=== PATIENT | male | born 1940 | race Caucasian/White ===

== ENCOUNTER → 2016-07-24 | Outpatient (REF) | payer MEDICARE ==
[~2016-07-24] MED LIST: /ONDA4TA OR; /PANT40TA OR; /PROM25SU RE; /WARF5TA OR; ACET65TA OR; CIPR500T4 OR; DIGO0.126 OR; DILA2TAB OR; FISH1000 OR; FLAG500T OR; GLIM1TAB OR; GLUC1000 OR; GLUC850T OR; INSULANT SC; INSULIN LANTUS SQ; KETO-28 OR; LIPI10TA OR; LISI5TAB OR; LOPR50TA OR; MULTIVIT OR; PERC5TAB8 OR; PERC7.5T8 OR; VIT D 2000 OR; VITA-113 OR; VITA100T OR; VITA500C OR; WARF1TAB OR; caltrate; in; multaq OR
[2016-07-24 14:06] LABS: IMMUNOGLOBULIN M 41.7 MG/DL (40-230)
== END ==
LOC: M LAB REF 13:01
PROVIDERS: ATTEND Internal Medicine Medical Oncology
DX: C85.90 Non-Hodgkin lymphoma, unspecified, unspecified site (principal)

== ENCOUNTER → 2016-07-25 | Outpatient (CLI) | payer MEDICARE ==
[~2016-07-25] MED LIST changes: +GASTROGRAFIN SOLUTION 30ML (Q9963) As Ordered ONE; +ISOVUE-370 76% 100ML VIAL (Q9967) As Ordered ONE
--- NOTE | 2016-07-25 17:19 | REP ---
CT CHEST WITH CONTRAST: REASON: History of non-Hodgkin's lymphoma. COMPARISON: Chest CT 06/22/2015 with an older exam of 09/09/2012. CONTRAST UTILIZED: 100 mL Isovue-370. There has been no significant increase in size in the right hilar lymph nodes. Maximally measuring 1.2 cm status quo. There is no left hilar adenopathy. Small subcarinal lymph nodes are noted status quo. There is no alaina mediastinal adenopathy. There are no pleural or pericardial effusions. The imaged osseous structures are stable and intact. Evaluation of the lung sultana show chronic fibrotic changes status quo. There is varicoid bronchiectasis at the lung bases and cylindrical bronchiectasis involving the upper lung regions. This too is essentially unchanged. No new abnormal nodules, mass, or opacities have developed although could be obscured by the marked chronic fibrotic changes. IMPRESSION: Essentially stable CT examination of the chest with findings as described above. Signed by Moise Ac DO 07/30/2016 02:51 P
--- NOTE | 2016-07-25 17:25 | REP ---
CT ABDOMEN AND PELVIS: REASON: History of non-Hodgkin's lymphoma. COMPARISON: Multiple, latest 01/11/2016. CONTRAST UTILIZED: 100 mL Isovue-370. The precontrast enhanced portion of the examination shows hepatic and splenic densities to remain with normal limits. Surgical clips are in the gallbladder fossa from previous cholecystectomy status quo. There are no nephroliths. The contrast enhanced portion of the examination shows the liver, spleen, pancreas, adrenal glands, and kidneys to be unchanged and within normal limits. Note is again made of an exophytic cyst arising from the superior pole of the right kidney status quo. There is no change in appearance of the abdominal aorta. The paraaortic regions are stable showing no evidence of adenopathy. The bowel loops and mesenteries are essentially unchanged remaining in normal limits. No intraabdominal mass or adenopathy has developed. CT PELVIS: There is no pelvic mass or adenopathy. There is no free fluid or free air. The bowel loops and their mesenteries are again seen to be within normal limits. Bone window technique throughout the exam shows chronic osseous changes status quo. IMPRESSION: Essentially stable CT examination of the abdomen and pelvis with findings as described above. There is no evidence of recurrent disease. Signed by Moise Ac DO 07/30/2016 02:51 P
== END ==
LOC: M RAD 14:10
PROVIDERS: ATTEND Internal Medicine Medical Oncology
DX: C85.90 Non-Hodgkin lymphoma, unspecified, unspecified site (principal)
CPT/HCPCS: 71260; 74178; Q9963; Q9967

== ENCOUNTER 2019-02-13 11:36 | Inpatient (IN) | payer MEDICARE ==
[~2019-02-13] VITALS: Ht 172.7 cm; Wt 87.2 kg
[~2019-02-13 11:36] MED LIST changes: -/ONDA4TA OR; -/PANT40TA OR; -/WARF5TA OR; +APAP325T4 PO; +ASCO500T PO; +COUM1TAB17 OR; +FENO160T10 PO; +FENO48TA13 PO; -GASTROGRAFIN SOLUTION 30ML (Q9963) As Ordered ONE; +GLIM4TAB3 PO; +INSULADS SC; -ISOVUE-370 76% 100ML VIAL (Q9967) As Ordered ONE; +LOPR1TAB6 PO; +METF500S PO; +ONDA-1 OR; +PROT1TAB2 OR; +VITA100066 PO; +VITA500C10 PO; +WARF-23 PO
[2019-02-13] MEDS ORDERED: NS 1,000 ML IV SCH (11:43)
[2019-02-13] MEDS ORDERED: VITA500C24 PO (11:54)
[2019-02-13] MEDS ORDERED: WARF-18 PO (11:54)
[2019-02-13] MEDS ORDERED: CENTTAB16 PO (11:54)
[2019-02-13] MEDS ORDERED: ROSU10TA6 PO (11:54)
[2019-02-13 12:31] LABS: BASO % 0.1 % (0.0-1.0); EOS % 0.3 % (0.0-3.0); HEMATOCRIT 36.8 % (42.0-52.0); HEMOGLOBIN 12.3 g/dl (13.5-17.5); LYMPH # 0.7 10^3/uL (1.5-5.0); LYMPH % 4.6 % (24.0-44.0); MEAN CORPUSCULAR HEMOGLOBIN 31.2 pg (27.0-33.0); MEAN CORPUSCULAR HGB CONC 33.4 g/dl (32.0-36.5); MEAN CORPUSCULAR VOLUME 93.4 fl (80.0-96.0); MONO % 13.6 % (0.0-5.0); NEUTROPHILS # 12.2 10^3/uL (1.5-8.5); NEUTROPHILS % 80.4 % (36.0-66.0); PLATELET COUNT, AUTOMATED 238 10^3/uL (150-450); RED BLOOD COUNT 3.94 10^6/uL (4.30-6.10); WHITE BLOOD COUNT 15.2 10^3/uL (4.0-10.0)
[2019-02-13 12:53] LABS: MONO # 2.1 10^3/uL (0.0-0.8)
[2019-02-13 12:56] LABS: INR 2.07; PROTHROMBIN TIME 23.1 SECONDS (11.8-14.0)
[2019-02-13 12:57] LABS: PARTIAL THROMBOPLASTIN TIME 39.1 SECONDS (25.0-38.4)
[2019-02-13 13:12] LABS: ALBUMIN 3.2 GM/DL (3.2-5.2); BILIRUBIN,DIRECT 0.6 MG/DL (0.0-0.2); BILIRUBIN,TOTAL 1.3 MG/DL (0.2-1.0); CK-MB VALUE MASS 7.4 NG/ML (<3.6); CREATININE FOR GFR 2.14 MG/DL (0.70-1.30); GLOMERULAR FILTRATION RATE 32.1 (>42); MB/CK RELATIVE INDEX 0.58 (< OR =4); POTASSIUM SERUM 4.4 MEQ/L (3.5-5.1); THYROID STIMULATING HORMONE 1.74 uIU/ML (0.358-3.740); TOTAL PROTEIN 6.8 GM/DL (6.4-8.2); TROPONIN I 0.63 NG/ML (< 0.10)
--- NOTE | 2019-02-13 13:28 | REP ---
PORTABLE CHEST: AP portable view of the chest is performed. Heart is upper limits of normal in size. There is underlying interstitial fibrosis with poor ventilation and basilar atelectatic change. I cannot completely exclude mild bibasilar interstitial infiltrate. There is calcification of the thoracic aorta. Multiple sternal wires and mediastinal clips are present. Electronically Signed by Jeff Mora MD 02/14/2019 11:11 A
[2019-02-13] MEDS ORDERED: METF-839 PO (14:16)
[2019-02-13] MEDS ORDERED: ASCO500T PO (14:16)
[2019-02-13] MEDS ORDERED: ROSU20TA5 PO (14:16)
[2019-02-13] MEDS ORDERED: cefTRIAXone SOD 2 GM in D5W MINI-BAG PLUS 50 ML IV ONE (16:00)
[2019-02-13] MEDS ORDERED: NS 1,000 ML IV ONE (16:00)
[2019-02-13 16:12] LABS: CK-MB VALUE MASS 6.4 NG/ML (<3.6); MB/CK RELATIVE INDEX 0.51 (< OR =4); TROPONIN I 0.61 NG/ML (< 0.10)
[2019-02-13] MEDS ORDERED: AZITHROMYCIN INJ 500 MG, VIAL MATE ADAPTER 1 EACH in D5W 250 ML IV ONE (17:00)
--- NOTE | 2019-02-13 17:26 | HPEPDOC ---
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 corey, on anticoagulation with Coumadin, comes to the ER because he was sent from the doctor's office because of abnormal labs. The patient was found to have leukocytosis and A. fib with RVR. The patient states that over the last 34 days he has been feeling other than the weather and has been having cough which has been progressive and now he is having sputum which is greenish in color. He states that he has having night sweats but denies any fever. Patient denies any chest pain, any shortness of breath or any declining physical status. The patient states that he feels more tired than before. The patient also states that he has no diarrhea. The patient denies any travel outside the country, but he does state that he has been going for fishing and was recently out couple of days back. The patient denies any sick contacts, any flulike symptoms. The patient denies any abdominal pain, any diarrhea, any nausea or any vomiting. He denies any rash PAST MEDICAL HISTORY: A. fib, CAD status post CABG, history of bladder cancer, non-Hodgkin's lymphoma, skin cancer, PAST SURGICAL HISTORY: CABG FAMILY HISTORY: Noncontributory. SOCIAL HISTORY: Nonsmoker. No alcohol abuse. No drug abuse FAMILY HISTORY: History of hypertension HOME MEDICATIONS: Updated ALLERGIES: No drug allergies REVIEW OF SYSTEMS: Pertinent positive findings as per HPI PHYSICAL EXAMINATION: GENERAL alert, oriented to time, place and person. Looks of stated age. HEENT: Normocephalic, atraumatic. NECK: No jugular venous distention. No cervical lymphadenopathy. Trachea is midline. Neck is supple. CHEST: Mild bibasilar crackles, more like Velcro rales with very mild diffuse Rales heard. CARDIOVASCULAR: S1, S2, irregular with tachycardia . No murmurs, clicks, or rubs can be appreciated. ABDOMEN: Soft. It is actually relatively flat. There is no guarding, no peritoneal signs. Minimal tenderness. Positive bowel sounds. EXTREMITIES: Mild pedal edema LABORATORY DATA: As below EKG. Current EKG shows A. fib with RVR with a heart rate of 112 ASSESSMENT AND PLAN: 1. Sepsis secondary to Bilateral lower lobe pneumonia along with possible interstitial ground glass appearing infiltrates. Given the patient positives or criteria for lactic acidosis, tachycardia, the source of infection. Patient will be treated as sepsis secondary to pneumonia. The patient will be started on Rocephin and azithromycin to cover atypical interstitial pneumonia. Sputum culture and Procal will be sent. Blood culture also will be sent. He'll be continued on supplemental oxygen to maintain saturation about 92. Dual nebs when necessary and schedule will be ordered. CT scan of the chest was alre mya done which shows interstitial pneumonia with possible fibrotic changes which could be a chronic groundglass appearance, but we are awaiting the official report 2-D echo will also be done as he has bilateral atrial crackles to rule out any component of CHF. 2. A. fib RVR. Likely secondary to pneumonia and lactic acidosis. Patient does look slightly dehydrated and for that reason, he'll be continued on 75 mL of normal saline. Repeat lactic acid will be done. Cultures ordered as above. Metoprolol 50 twice a day has been restarted as the patient did not take his morning dose. We will continue the IV fluids as well as medication and sees the heart. It gets controlled. If not, then the patient be put on Cardizem drip. Patient will be continued on the home dose of Coumadin as the patient has high chads score of 4. Target INR 2-3 Continue telemetry monitoring. Follow-up with 2-D echo 3. Lactic acidosis. Likely secondary to sepsis. We'll continue to monitor and give IV fluids. 4. CAD status post CABG. We will continue the patient's home medications will be a blockers and aspirin. 5. Hyper ammoniemia: Etiology unknown. The patient does have mildly elevated bilirubin of 1.3. Will get direct and indirect bilirubin along with liver sonogram to rule out any fatty liver versus Mccall. We'll continue to monitor the liver function tests. Will give 1 dose of 15 of lactulose. Monitor ammonia levels in the morning. 6. Elevated troponins. Likely secondary to A. fib RVR and demand ischemia. With a flat trend. Will order one more troponin. 2-D echo will also be ordered and the patient will be kept on telemetry. 7. History of non-Hodgkin's lymphoma. Continue outpatient follow-up with on cology. 8. History of skin cancers. Outpatient follow-up 9. History of bladder cancer. Outpatient follow-up DVT prophylaxis full dose Coumadin Expected length of stay greater than 2 per night. Vital Signs Vital Signs Date Time Temp Pulse Resp B/P (MAP) Pulse Ox O2 Delivery O2 Flow Rate FiO2 02/13/19 12:32 Room Air 02/13/19 11:42 97.9 116 19 131/84 95 Laboratory Data Labs 24H Laboratory Tests 2 02/13/19 12:15: Prothrombin Time 23.1H, Prothromb Time International Ratio 2.07, Activated Partial Thromboplast Time 39.1H 02/13/19 12:16: Immature Granulocyte % (Auto) 1.0, Neutrophils (%) (Auto) 80.4H, Lymphocytes (%) (Auto) 4.6L, Monocytes (%) (Auto) 13.6H, Eosinophils (%) (Auto) 0.3, Basophils (%) (Auto) 0.1, Neutrophils # (Auto) 12.2H, Lymphocytes # (Auto) 0.7L, Monocytes # (Auto) 2.1H, Eosinophils # (Auto) 0.0, Basophils # (Auto) 0.0, Nucleated Red Blood Cells % (auto) 0.0, Anion Gap 13, Glomerular Filtration Rate 32.1L, Lactic Acid Level 3.3*H, Calcium Level 9.0, Total Bilirubin 1.3H, Direct Bilirubin 0.6H, Aspartate Amino Transf (AST/SGOT) 54H, Alanine Aminotransferase (ALT/SGPT) 34, Alkaline Phosphatase 70, Ammonia 100H, Lactate Dehydrogenase 329H, Total Creatine Kinase 1286H, Creatine Kinase MB 7.4H, Creatine Kinase MB Relative Index 0.58, Troponin I 0.63H, FH-Jsd-X-Type Natriuretic Peptide 2459H, Total Protein 6.8, Albumin 3.2, Albumin/Globulin Ratio 0.89L, Thyroid Stimulating Hormone (TSH) 1.740 02/13/19 12:27: Bedside Glucose (Misc Panel) 171H 02/13/19 15:08: Total Creatine Kinase 1263H, Creatine Kinase MB 6.4H, Creatine Kinase MB Relative Index 0.51, Troponin I 0.61H 02/13/19 16:34: CBC/BMP Laboratory Tests 02/13/19 12:16 Microbiology Microbiology 02/13/19 Gram Stain - Final, Resulted 02/13/19 Sputum Culture, Resulted Pending 02/13/19 Respiratory Virus Panel (PCR) (SUSAN) - Final, Complete 02/13/19 Blood Culture, Received Pending 02/13/19 Blood Culture, Received Pending Home Medications Scheduled Ascorbic Acid (Ascorbic Acid) 500 Mg Tablet, 500 MG PO DAILY Fenofibrate Nanocrystallized (Fenofibrate) 48 Mg Tablet, 48 MG PO QHS Glimepiride (Glimepiride) 4 Mg Tab, 4 MG PO BID Insulin Glargine (Lantus) 100 Unit/Ml Inj, 1 DOSE SC QHS CHECKS BS PRIOR TO DOSE, ADJUSTS DOSE ACCORDINGLY Metformin HCl (Metformin HCl) 500 Mg Tablet, 500 MG PO BID Metoprolol Tartrate (Lopressor) 50 Mg Tab, 50 MG PO BID Multivit-Min/FA/Lycopen/Lutein (Centrum Silver Ultra Men's Tab) 1 Each Tablet, 1 TAB PO DAILY Rosuvastatin Calcium (Rosuvastatin Calcium) 20 Mg Tablet, 20 MG PO QHS Warfarin Sodium (Warfarin Sodium) 5 Mg Tab, 5 MG PO 2XW TUES/THURS Warfarin Sodium (Warfarin Sodium) 2.5 Mg Tablet, 2.5 MG PO 5XW SUN/MON/WED/FRI/SAT Scheduled PRN Acetaminophen (Acetaminophen) 325 Mg Tab, 650 MG PO Q4H PRN for PAIN Allergies Coded Allergies: No Known Allergies (Unverified , 07/24/18) A-FIB/CHADSVASC A-FIB History Current/History of A-Fib/PAF?: Yes Current PO Anticoag Therapy: Yes BECKY SALDIVAR MD Feb 13, 2019 17:11
--- NOTE | 2019-02-13 17:29 | REP ---
CT CHEST WITHOUT IV CONTRAST: CT chest performed without IV contrast. Sagittal and coronal reconstruction images are performed. COMPARISON: 07/25/2016 There is a moderate degree of bronchiectasis bilaterally, particularly in the lower lobes. There is diffuse interstitial fibrosis again seen, again more so in the bilateral lower lobes. However, there do appear to be superimposed mild scattered interstitial and alveolar infiltrates in the lower lungs bilaterally. No pleural or pericardial effusion is seen. Heart is upper limits of normal in size. Mild subcarinal adenopathy is likely reactive in nature 1.5 cm in short axis. There are a few subcentimeter mediastinal lymph nodes in the pericarinal region. There are atherosclerotic calcifications of the thoracic aorta without aneurysm. There is a cyst in the upper pole of the right kidney measuring 2 cm in diameter. The patient has had a prior cholecystectomy. There are degenerative changes of the spine. IMPRESSION: Chronic fibrosis and bronchiectasis. Superimposed mild scattered interstitial and alveolar infiltrate in both lower lung zones. Electronically Signed by Jeff Mora MD 02/14/2019 11:20 A
[2019-02-13] MEDS ORDERED: MOM 30ML SUSPENSION UDC PO PRN (17:30)
[2019-02-13] MEDS ORDERED: MAALOX 30 ML SUSP *UDC PO PRN (17:30)
[2019-02-13] MEDS ORDERED: ACETAMINOPHEN TAB 650MG DOSE (2X325MG) PO PRN (17:30)
[2019-02-13] MEDS ORDERED: GLUCAGON FOR INJ 1 MG VIAL (J1610) SC PRN (17:45)
[2019-02-13] MEDS ORDERED: GLUCOSE 4 GM CHEW TABLET PO PRN (17:45)
[2019-02-13] MEDS ORDERED: LACTULOSE 20 GM/30 ML SYRUP UD PO ONE (17:45)
[2019-02-13] MEDS ORDERED: DEXTROSE 50% 50 ML SYRINGE IV PRN (17:45)
[2019-02-13] MEDS: NS 1,000 ML IV SCH (17:46)
[2019-02-13] MEDS ORDERED: METOPROLOL 5 MG/5 ML VIAL As Ordered ONE (19:30)
[2019-02-13] MEDS: diltiaZEM 125 MG in NS 100 ML IV SCH (19:30)
[2019-02-13] MEDS: METOPROLOL 5 MG/5 ML VIAL IV SCH ×3 (19:32→20:25)
--- NOTE | 2019-02-13 19:52 | REPVR ---
PROCEDURE INFORMATION: Exam: US Abdomen Limited, Right Upper Quadrant Exam date and time: 02/13/2019 7:02 PM Clinical history: 78 years old, male; Abnormal findings; Abnormal lab test; Elevated liver enzymes; Prior surgery; Surgery date: 6+ months; Additional info: Elevated ness TECHNIQUE: Imaging protocol: Real-time ultrasound of the abdomen with image documentation. Examination was focused on the right upper quadrant. COMPARISON: No relevant prior studies available. FINDINGS: Liver: Coarsened liver echotexture with normal size measuring 14 cm. Gallbladder: Normal gallbladder. Common bile duct: Normal. No stones. No dilation. Pancreas: Pancreas obscured by bowel gas. Right kidney: Unremarkable 12 cm right kidney. IMPRESSION: 1. Coarsened liver echotexture with normal size measuring 14 cm. 2. Normal gallbladder. Electronically signed by: Sohan Pedro On 02/13/2019 19:52:00 PM
[2019-02-13] MEDS: BUDESONIDE 0.5 MG/2 ML INHALATION SUSPENSION INH SCH (20:00)
[2019-02-13] MEDS ORDERED: METOPROLOL TART 50 MG TAB PO SCH (21:00)
[2019-02-13] MEDS: DOCUSATE SODIUM 100 MG CAP PO SCH (21:00)
--- NOTE | 2019-02-13 21:29 | ECGEPIP ---
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
--- NOTE | 2019-02-13 21:32 | ECGEPIP ---
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
[2019-02-13] MEDS: ROSUVASTATIN 10 MG TAB (CRESTOR) PO SCH (21:45)
[2019-02-13 22:45] VITALS: BP 140/55
[2019-02-13 22:52] LABS: INR 1.99; PROTHROMBIN TIME 22.4 SECONDS (11.8-14.0)
[2019-02-13 23:00] VITALS: BP 148/56
[2019-02-13 23:07] LABS: HEMOGLOBIN A1c 7.5 %
[2019-02-13 23:16] LABS: BILIRUBIN,DIRECT 0.4 MG/DL (0.0-0.2); THYROID STIMULATING HORMONE 1.15 uIU/ML (0.358-3.740); TROPONIN I 0.44 NG/ML (< 0.10)
[2019-02-13 23:32] VITALS: BP 133/100
[2019-02-13] MEDS ORDERED: IPRATROPIUM 0.5MG/ALBUTEROL 2.5MG INH SOL UD 3ML (DUONEB)(J7620) NEB PRN (23:45)
[2019-02-14] VITALS (18 sets, daily range): BP systolic 106–173; BP diastolic 58–90
--- NOTE | 2019-02-14 00:30 | CR ---
DATE: 02/13/2019 REASON FOR CONSULTATION: Abnormal chest CT. HISTORY OF PRESENT ILLNESS: Sohan is a 78-year-old male who is unable to provide any history so the majority of his medical history is obtained by his daughter. Apparently at home, he had developed a cough over the past few days productive of dark green mucus. He had been under the care of oncology and went to a medical oncology appointment where they noticed leukocytosis, and therefore, he was sent to the emergency room. According to his daughter, he had some altered mentation over the past few days. She states he had trouble driving. She had not noticed any fevers or chills, but did notice a developing cough. He had not complained of chest pain. She did not notice any worsening edema, although he does carry a history of coronary artery disease with systolic dysfunction. On arrival to the emergency room, he was tachycardiac, found to be in atrial fibrillation with rapid ventricular response (RVR) with a normal oxygen saturation on room air at 95%. He was started on antibiotics. Although his RVR became more difficult to treat, eventually went into a tachyarrhythmia above 200. I do not have an EKG from that time, but apparently he was administered IV beta fer with good response. His daughter noting that I was in the building requested my presence at his bedside. I was asked by the hospitalist to attend this patient. On my arrival to the room, the patient appeared comfortable, was coughing. He states overall he feels well and he has no complaints. He could not recall what brought him to the hospital. Two days ago, the patient was seen by his primary care physician and placed on azithromycin for his cough. PAST MEDICAL HISTORY: 1. Atrial fibrillation. 2. History of coronary artery disease, status post coronary artery bypass graft (CABG), reported systolic dysfunction. I do not have an echocardiogram for my review. 3. History of bladder carcinoma. 4. History of non-Hodgkin's lymphoma, diagnosed 2004. Completed his second course of R-CHOP 2009 because of mesenteric relapse with a maintenance rituximab for 2 years and then considered to be in remission. 5 History of skin cancer, squamous cell carcinoma of the scalp. CURRENT MEDICATIONS: Include: - warfarin - ceftriaxone - vitamin C - multivitamin - azithromycin - Tricor - Lopressor - Crestor - Tylenol - Milk of Magnesia - Colace - Mylanta - diltiazem ALLERGIES: No known drug allergies. SOCIAL HISTORY: The patient has a very remote limited history of smoking, has not smoked within the past 30 years. There is no alcohol abuse. No drug use. He lives with his . His daughter is an intensive care unit (ICU) nurse. FAMILY HISTORY: No family history of idiopathic pulmonary fibrosis or interstitial lung disease. There is a family history of hypertension. No other significant family history that they are aware of. REVIEW OF SYSTEMS: As noted above, the patient denies almost all symptoms. May be unreliable due to his current mental state; however, questions answered as follows: General: The patient denies fever, chills, weight loss. The patient has had no night sweats. HEENT: The patient denies change in vision. No epistaxis. No difficulty swallowing. He denies any difficulty with hearing. Cardiovascular: Denies orthopnea. No lower extremity edema. No symptoms of claudication. Pulmonary: No symptoms of thromboembolic disease. No pleuritic chest discomfort. No history of tuberculosis, tuberculosis contacts. He has no hemoptysis. Positive cough as mentioned in HPI. Denies dyspnea, although the patient's daughter states she has seen him dyspneic. Gastrointestinal (GI): No nausea, vomiting, diarrhea, constipation or blood in stool. Genitourinary (): No burning or pain with urination. No nocturia or hematuria. Neurologic: No unilateral weakness, tremor or history of seizures. No recent head trauma. No history of stroke. Endocrine. No history of polyuria, polydipsia. No history of thyroid disease. No hot or cold intolerance. Psychiatric: No depression/suicidal ideation. No anxiety. Patient very jovial. Allergy/Immunology: No known severe allergic reactions. No seasonal allergies. The patient did have a remote history of a difficult to treat urinary Pseudomonal infection. This was previously treated by Dr. Ny. No known immunodeficiency. Sleep: Patient denies excessive daytime somnolence, has not been worked up for sleep apnea. No morning headaches. PHYSICAL EXAMINATION: Temperature is 99.7, pulse is 118, respiratory rate is 18, blood pressure is 109/58 with a mean arterial pressure (MAP) of 75, oxygen saturation is 92% on room air. General: Awake, alert, confused but understands he is in the hospital. Pleasant, jovial, nonagitated. HEENT: Sclerae clear and anicteric. Pupils equal and react to light. Mucous membranes are moist without lesions. Tongue is midline. He does have a scar over the posterior scalp that is well healed with some scabs, without surrounding erythema or exudate. Neck is supple. No tracheal deviation or mass. Lymph: No cervical, supraclavicular, or axillary adenopathy. Cardiac: Tachycardiac, S1, S2. Point of maximum impulse (PMI) is difficult to palpate due to body habitus. There is no systemic edema. Negative Homans sign. Pulmonary: Diffuse rhonchi without rales or wheeze. There is no prolongation in the expiratory phase. There is no dullness to percussion. Abdomen: Obese, soft, nontender, nondistended. No hepatosplenomegaly. No masses or hernia. Liver does appear to be slightly enlarged based on percussion, just over 12 cm in the midclavicular line. Negative Homans' sign. Extremities: No cyanosis, clubbing or edema. No calf pain. Musculoskeletal: Appears to have normal muscle tone for stated age. No evidence of joint effusion, joint fractures. Skin: No rash, jaundice, bruising. Neurologic: No unilateral weakness, tremor or asterixis. Laboratory evaluation shows a hyponatremia with a sodium of 132, potassium 4.4, chloride 97, bicarbonate of 22, BUN of 39, anion gap is elevated at 13 with a creatinine of 2.14, fasting glucose of 159. Lactate initially 2.3, then down to 2.1. Total bilirubin slightly elevated at 1.3, direct bilirubin of 0.6, AST is 54, ammonia is 100, CK is 1286 and repeated at 1263. Troponin at 0.63, 0.61. BNP is elevated at 2459. Albumin is 3.2 with a TSH of 1.7. INR is 1.99. White blood cell count is elevated at 15.2, hemoglobin of 12.3, hematocrit of 36.8, platelet count of 238 with 80% neutrophilia. Chest CT was performed at 1344 hours. This was performed contrast. There is significant bronchiectasis in both lung sultana, more predominant at the bases. There is evidence of pleural parenchymal scarring with areas of honeycombing suggesting mild pulmonary fibrosis. There is some infiltrate at the end of a bronchiectatic airway in the left upper lobe that could be the start of infection versus inflammatory fibrosis. There is significant cardiomegaly, including increased right-sided chamber size. IMPRESSION Bronchiectasis with probable underlying idiopathic pulmonary fibrosis. The patient does not have a history of having rheumatologic disease that I am aware of. He likely has pulmonary hypertension given the appearance of the heart on exam. He has known coronary artery disease. At this point in time, would recommend focusing on mucociliary clearance, adding nebulized therapy, Acapella therapy, positive expiratory pressure (PEP) therapy to his regimen. Would obtain sputum culture. At this point in time, I am stopping his azithromycin as this can provoke arrhythmias, and there can be an increased risk of cardiovascular with the use of azithromycin. Will monitor sputum cultures. I believe bronchiectasis exacerbation is the reason for his current clinical status. Will require continued followup. Pulmonary service will follow this patient during his hospital stay. I suspect underlying respiratory infection but would continue to be vigilant monitoring for other signs, sources of infection.
[2019-02-14] MEDS: FENOFIBRATE 48 MG TAB (TRICOR) PO SCH ×2 (00:38→20:48)
[2019-02-14 05:19] LABS: HEMATOCRIT 35.3 % (42.0-52.0); HEMOGLOBIN 11.9 g/dl (13.5-17.5); MEAN CORPUSCULAR HEMOGLOBIN 31.6 pg (27.0-33.0); MEAN CORPUSCULAR HGB CONC 33.7 g/dl (32.0-36.5); MEAN CORPUSCULAR VOLUME 93.6 fl (80.0-96.0); PLATELET COUNT, AUTOMATED 245 10^3/uL (150-450); RED BLOOD COUNT 3.77 10^6/uL (4.30-6.10); WHITE BLOOD COUNT 14.8 10^3/uL (4.0-10.0)
[2019-02-14 05:45] LABS: ALBUMIN 2.9 GM/DL (3.2-5.2); BILIRUBIN,TOTAL 0.8 MG/DL (0.2-1.0); CREATININE FOR GFR 1.81 MG/DL (0.70-1.30); GLOMERULAR FILTRATION RATE 38.9 (>42); MAGNESIUM LEVEL 2.1 MG/DL (1.8-2.4); TOTAL PROTEIN 7.4 GM/DL (6.4-8.2)
[2019-02-14] MEDS: HumaLOG INSULIN (NovoLOG) PER UNIT SC SCH ×3 (07:30→17:30)
[2019-02-14] MEDS: BUDESONIDE 0.5 MG/2 ML INHALATION SUSPENSION INH SCH ×2 (07:52→19:42)
[2019-02-14] MEDS: IPRATROPIUM 0.5MG/ALBUTEROL 2.5MG INH SOL UD 3ML (DUONEB)(J7620) NEB SCH ×3 (08:00→19:42)
[2019-02-14] MEDS: DOCUSATE SODIUM 100 MG CAP PO SCH ×2 (08:08→20:49)
[2019-02-14] MEDS ORDERED: AZITHROMYCIN INJ 500 MG, VIAL MATE ADAPTER 1 EACH in D5W 250 ML IV SCH (09:00)
[2019-02-14] MEDS: NS 1,000 ML IV SCH (09:30)
[2019-02-14] MEDS: METOPROLOL TART 25 MG TABLET PO SCH ×2 (09:30→20:50)
[2019-02-14] MEDS: ASCORBIC ACID 500 MG TAB PO SCH (09:31)
[2019-02-14] MEDS: MULTIVITAMINS/MINERALS THERAP 1 TAB PO SCH (09:31)
[2019-02-14] MEDS: cefTRIAXone SOD 1 GM in D5W MINI-BAG PLUS 50 ML IV SCH (09:31)
--- NOTE | 2019-02-14 10:48 | IPNPDOC ---
Text Note Date of Service The patient was seen on 02/14/19. NOTE Patient seen and examined. Currently upgraded to ICU because he continued to have a heart rate of 120s and was slightly altered last night. PHYSICAL EXAMINATION: GENERAL alert, oriented to time, place and person. Looks of stated age. HEENT: Normocephalic, atraumatic. NECK: No jugular venous distention. No cervical lymphadenopathy. Trachea is midline. Neck is supple. CHEST: Mild bibasilar crackles, more like Velcro rales with very mild diffuse Rales heard. CARDIOVASCULAR: S1, S2, irregular with tachycardia . No murmurs, clicks, or rubs can be appreciated. ABDOMEN: Soft. It is actually relatively flat. There is no guarding, no peritoneal signs. Minimal tenderness. Positive bowel sounds. EXTREMITIES: Mild pedal edema LABORATORY DATA: As below EKG. Current EKG shows A. 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 fib, on anticoagulation with Coumadin, comes to the ER because he was sent from the doctor's office because of abnormal labs. The patient was found to have leukocytosis and A. fib with RVR. The patient states that over the last 3-4 days he has been feeling other than the weather and has been having cough which has been progressive and now he is having sputum which is greenish in color. He states that he has having night sweats but denies any fever. He was found to be in A. fib RVR and has been treated with IV metoprolol and Toprol 75 twice a day along with diet, on antibiotics with IV Rocephin and azithromycin. The patient also had elevated ammonia for which liver sonogram has been ordered and lactulose was given after which his mental status improved. Currently 2-D echo is awaited. Antibiotic Rocephin and azithromycin day 2 1. Sepsis secondary to Bilateral lower lobe pneumonia along with possible interstitial ground glass appearing infiltrates pointing towards possible chronic interstitial lung disease Cirrhosis, has resolved and the patient continues to be on 75 mL of IV fluid . T he patient is on Rocephin and azithromycin to cover atypical interstitial pneumonia. Sputum culture and Procal sent. Blood culture sent. He'll be continued on supplemental oxygen to maintain saturation about 92. Dual nebs when necessary and schedule will be ordered. 2-D echo will also be done as he has bilateral atrial crackles to rule out any component of CHF. 2. A. fib RVR. Likely secondary to pneumonia and lactic acidosis. Patient does look slightly dehydrated and for that reason, he'll be continued on 75 mL of normal saline. Repeat lactic acid normal. Cultures ordered as above. Metoprolol increased to 75 twice a day . Patient will be continued on the home dose of Coumadin as the patient has high chads score of 4. Target INR 2-3 Continue telemetry monitoring. Follow-up with 2-D echo 3. Lactic acidosis. Resolved. Likely secondary to sepsis. 4. CAD status post CABG. We will continue the patient's home medications will be a blockers and aspirin. 5. Hyper ammoniemia: Etiology unknown. 2. He does have possible fatty liver. The patient does have mildly elevated bilirubin of 1.3.We'll continue to monitor the liver function tests. He was given 1 dose of 15 of lactulose. Monitor ammonia levels 6. Elevated troponins. Likely secondary to A. fib RVR and demand ischemia. With a flat trend. 2-D echo ordered and the patient will be kept on telemetry. 7. History of non-Hodgkin's lymphoma. Continue outpatient follow-up with oncology. 8. History of skin cancers. Outpatient follow-up 9. History of bladder cancer. Outpatient follow-up 10. Acute kidney injury. The patient in 2018 had a baseline creatinine of 1.5 and today it is 1.8 . We will continue IV fluids. Avoid any nephrotoxic drugs and continue sent for cc of normal saline. 11. DM 2. A1c has been ordered. We will continue sliding scale insulin and A 24-hour requirement and dose accordingly. Hold all hypoglycemic drugs. DVT prophylaxis full dose Coumadin VS,Fishbone, I+O VS, Fishbone, I+O Laboratory Tests 02/13/19 12:16 02/14/19 05:08 Vital Signs Date Time Temp Pulse Resp B/P (MAP) Pulse Ox O2 Delivery O2 Flow Rate FiO2 10/26/19 10:00 118 18 173/90 (117) 96 Room Air 02/14/19 08:00 97.9 02/13/19 19:16 2.0 I&O- Last 24 Hours up to 6 AM 02/14/19 05:59 Intake Total 1720 ml Balance 1720 ml BECKY SALDIVAR MD Feb 14, 2019 10:48
--- NOTE | 2019-02-14 12:12 | CCN ---
DATE: 02/14/2019 Patient was seen and examined this morning during bedside rounds. This morning the patient feels his cough has improved slightly. He is still producing cough with some thick yellow mucus, although he feels his shortness of breath has also improved. He denies any chest pains currently. Has not had any fevers or chills overnight. The patient mentally appears to be more awake and alert and not as confused this morning. Patient was having frequent episodes of loose stool while on lactulose. Had approximately six episodes overnight, although this has slowed down this morning and he has not had any episodes in the past few hours. PHYSICAL EXAMINATION: Temperature 96.8, pulse was 115, respirations 20, blood pressure 131/68, O2 sat 95% on room air. Ins 1560, unable to monitor outs as the patient is having loose stools and urine together. General: Patient is sitting in bed, does not appear to be in any acute distress, is awake and alert, answering questions mostly appropriately. HEENT: Normocephalic, atraumatic. Pupils are equal and reactive to light bilaterally. Mucous membranes moist. The patient does have a scar on the posterior scalp that is well healed with some scabs. Neck is supple. No palpable adenopathy. Cardiac: Regularly irregular, normal S1-S2. Unable to appreciate any murmurs currently. Pulmonary: Patient has crackles bilaterally at the bases with occasional rhonchi and coarse wheeze with coughing. Abdomen is obese, soft, nontender, nondistended. No palpable mass. Extremities: There is no significant lower extremity edema bilaterally. LABORATORIES: WBC 14.8, hemoglobin 11.9, platelets 245. Chemistries - sodium is 133, potassium 4.0, chloride is 101, bicarb 22, BUN 35, creatinine is 1.81, glucose is 135, lactic acid 1.5, troponin trending down to 0.44. Respiratory viral panel was negative. ASSESSMENT/PLAN: Mr. Jenkins is a 78-year-old male with a past medical history of non-Hodgkin's lymphoma status post chemotherapy with a relapse and maintenance rituximab with remission now for the past 2 years, history of superficial urothelial cell carcinoma of the bladder, history of squamous cell carcinoma of the scalp and lip, atrial fibrillation on anticoagulation with Coumadin, coronary artery disease (CAD) status post coronary artery bypass grafting (CABG) who presented with complaints of altered mental status, shortness of breath and productive cough. The patient was found on admission to have atrial fibrillation with rapid ventricular response (RVR), likely secondary to an acute bronchiectasis exacerbation. The patient's is being rate controlled currently and his heart rate has improved. He has also been on antibiotics with ceftriaxone as well as Acapella device and nebulizer treatments with some improvement in his cough. - Patient had a CT chest on admission which showed evidence of chronic interstitial lung disease which was predominately basilar and peripheral with subpleural reticulation and honeycombing as well as bronchiectasis. Based on the CT pattern, it was suggestive for probably UIP. There were also some areas of mild alveolar infiltrates noted, which may be possibly infectious versus more inflammatory nonspecific interstitial pneumonia (NSIP), although given the appearance appeared more fibrotic at this time. - Given the evidence of bronchiectasis and increasing cough and sputum production, suspect the patient likely had an acute bronchiectasis exacerbation. - The patient has a previous history of Pseudomonas in the urine. Would followup with his sputum culture, but will continue ceftriaxone for now and consider broadening antibiotics to cover for Pseudomonas if he has increasing leukocytosis or fevers. Otherwise would followup the results of his initial sputum culture. - Continue with mucus clearance and pulmonary toilet with DuoNebs. Will change him to [id number] q.6 h and advised the patient to use his Acapella device after his nebulizer treatment for mucus clearance. - Continue with budesonide nebulizer BID - We did discuss with the patient and his daughter that he will need further evaluation for his interstitial lung disease including testing with connective tissue disease serology, although less likely given his symptoms. The patient's interstitial lung disease is more likely related to his previous chemotherapy treatment or possibly IPF. He would need further evaluation however to determine the potential etiology and therefore potential treatment for his interstitial lung disease. - He will also need pulmonary function testing as an outpatient. - The patient currently is maintaining an O2 sat above 90% while on room air. However, once he is more rate controlled he would also need to have monitoring of his oxygenation with ambulation to see if he desaturates and would require supplemental oxygen with exertion. - The patient does report a history of desaturation at night and had previously refused workup for sleep apnea. Will continue to monitor for now and if he is noted to have persistent desaturation at night would consider nocturnal oximetry study and supplemental oxygen nocturnally. - Continue with rate control and cardiac medications as per primary team. DVT prophylaxis. FULL CODE. MTDD
[2019-02-14] MEDS ORDERED: WARFARIN SOD 2.5 MG TAB PO SCH (17:00)
[2019-02-14 18:02] LABS: HEMATOCRIT 38.2 % (42.0-52.0); HEMOGLOBIN 12.6 g/dl (13.5-17.5); MEAN CORPUSCULAR HEMOGLOBIN 31.2 pg (27.0-33.0); MEAN CORPUSCULAR VOLUME 94.6 fl (80.0-96.0); PLATELET COUNT, AUTOMATED 250 10^3/uL (150-450); RED BLOOD COUNT 4.04 10^6/uL (4.30-6.10)
--- NOTE | 2019-02-14 18:48 | ECGEPIP ---
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 Electronically Signed on 02-14-2019 18:47:36 EDT by Sohan Quick
[2019-02-14] MEDS: diltiaZEM 125 MG in NS 100 ML IV SCH (19:30)
[2019-02-14] MEDS: ROSUVASTATIN 10 MG TAB (CRESTOR) PO SCH (20:49)
[2019-02-15] VITALS (14 sets, daily range): BP systolic 110–150; BP diastolic 56–78
[2019-02-15] MEDS: NS 1,000 ML IV SCH (00:30)
[2019-02-15] MEDS: IPRATROPIUM 0.5MG/ALBUTEROL 2.5MG INH SOL UD 3ML (DUONEB)(J7620) NEB SCH ×4 (02:11→20:10)
[2019-02-15 05:48] LABS: HEMATOCRIT 36.4 % (42.0-52.0); HEMOGLOBIN 11.8 g/dl (13.5-17.5); MEAN CORPUSCULAR HEMOGLOBIN 30.4 pg (27.0-33.0); MEAN CORPUSCULAR HGB CONC 32.4 g/dl (32.0-36.5); MEAN CORPUSCULAR VOLUME 93.8 fl (80.0-96.0); PLATELET COUNT, AUTOMATED 263 10^3/uL (150-450); RED BLOOD COUNT 3.88 10^6/uL (4.30-6.10); WHITE BLOOD COUNT 12.9 10^3/uL (4.0-10.0)
--- NOTE | 2019-02-15 06:41 | ECHO ---
DATE OF STUDY: 02/14/2019 REFERRING PHYSICIAN: Richard Wilson MD INDICATION: Dyspnea. HEIGHT: 68 inches. WEIGHT: Weight 193 pounds. 2D MEASUREMENTS: Aortic root 3.8 cm Proximal ascending aorta 3.8 cm Left atrium 5.0 cm Inferior vena cava 2.4 cm (approximately 50% respiratory variation) Left ventricle diastole 4.3 cm Left ventricle systole 3.3 cm Ventricular septum 1.25 cm Posterior wall 1.03 cm LVOT 2.3 cm Right ventricle 4.9 cm DOPPLER MEASUREMENTS: Aortic valve velocity 192 cm/s LVOT velocity 91.4 cm/s LVOT VTI 16.0 cm No aortic regurgitation. No aortic stenosis. Moderate mitral regurgitation. No mitral stenosis. Very mild tricuspid regurgitation. Very mild pulmonic regurgitation. Estimated right ventricle systolic pressure 37 mmHg assuming a right atrial pressure of 10 mmHg Pulmonary acceleration time 95 ms DESCRIPTION: Rhythm was atrial fibrillation with controlled ventricular response. No pericardial effusin. Image quality was fair. This was a 2D, M mode, color flow Doppler and pulse wave Doppler examination. CONCLUSIONS: 1. Mild focal hypertrophy of the basal anterior ventricular septum. Normal regional LV wall motion and wall thickening. Normal LV systolic function. LVEF 60% by visual estimate. Unable to assess LV diastolic function in the setting of atrial fibrillation. 2. Moderate mitral annular calcification. Moderate mitral regurgitation. No mitral stenosis. 3. Moderate aortic valve thickening and focal calcific deposits of a three-cuspid aortic valve. No aortic stenosis or regurgitation. 4. Mild dilatation of the aortic root at both the level of the sinuses of Valsalva and proximal ascending aorta. 5. Moderate left atrial dilatation. 6. Suggestive of mild elevation of estimated right ventricle systolic pressure. 7. Mildly dilated right ventricle with normal RV systolic function. 8. No pericardial effusion.
[2019-02-15] MEDS: HumaLOG INSULIN (NovoLOG) PER UNIT SC SCH ×3 (07:30→17:37)
[2019-02-15] MEDS: BUDESONIDE 0.5 MG/2 ML INHALATION SUSPENSION INH SCH ×2 (07:55→20:10)
[2019-02-15 07:56] LABS: INR 1.83; PROTHROMBIN TIME 20.9 SECONDS (11.8-14.0)
[2019-02-15 08:37] LABS: ALBUMIN 2.9 GM/DL (3.2-5.2); ALT/SGPT 88 U/L (12-78); BILIRUBIN,TOTAL 0.6 MG/DL (0.2-1.0); BLOOD UREA NITROGEN 24 MG/DL (7-18); CALCIUM LEVEL 8.1 MG/DL (8.8-10.2); CARBON DIOXIDE LEVEL 24 MEQ/L (21-32); CHLORIDE LEVEL 102 MEQ/L (98-107); CK-MB VALUE MASS 5.1 NG/ML (<3.6); CPK CREATINE PHOSPHOKINASE 1298 U/L (39-308); CREATININE FOR GFR 1.51 MG/DL (0.70-1.30); GLOMERULAR FILTRATION RATE 47.9 (>42); GLUCOSE, FASTING 112 MG/DL (70-100); MB/CK RELATIVE INDEX 0.39 (< OR =4); POTASSIUM SERUM 3.6 MEQ/L (3.5-5.1); SODIUM LEVEL 135 MEQ/L (136-145); TOTAL PROTEIN 6.6 GM/DL (6.4-8.2); TROPONIN I 0.26 NG/ML (< 0.10)
[2019-02-15] MEDS: DOCUSATE SODIUM 100 MG CAP PO SCH ×2 (08:39→20:43)
[2019-02-15] MEDS: MULTIVITAMINS/MINERALS THERAP 1 TAB PO SCH (08:39)
[2019-02-15] MEDS: METOPROLOL TART 50 MG TAB PO SCH ×4 (08:40→23:59)
[2019-02-15] MEDS: ASCORBIC ACID 500 MG TAB PO SCH (09:16)
[2019-02-15] MEDS: cefTRIAXone SOD 1 GM in D5W MINI-BAG PLUS 50 ML IV SCH (09:17)
--- NOTE | 2019-02-15 12:25 | IPNPDOC ---
Text Note Date of Service The patient was seen on 02/15/19. NOTE Subjective: Patient is a 78-year-old male with a PMHx of Atrial fibrillation (on Warfarin), CAD s/p CABG, Hx of Bladder CA, Stage EHSAN Marginal Zone B Cell NHL (s/p R-CHOP, s/p Rituximab), Superficial urothelial cell carcinoma of bladder (Follows Urology), Basal and Squamous cell CA of scalp and lip who presented to the emergency room with abnormal labs, sent in by his primary care provider. Patient has reported shortness of breath and productive cough with green colored sputum in the emergency room, patient was suspected of having a pneumonia and was admitted to the hospitalist service for further evaluation and treatment. In the emergency room, patient was also found to be in A. fib with RVR. Patient was seen and examined at the bedside. Currently, patient reports that his breathing is doing significantly better. He denies any chest pain or palpitations. Still reports a mild cough. Denies nausea, vomiting, abdominal pain, diarrhea, or urinary discomfort. Objective: Vitals (See below) General: Lying in bed, no acute distress, comfortable, AAOx3 HEENT: NC, AT CVS: IrIr, +S1S2 Lungs: Fair air entry b/l, appreciable rhonchi or wheezing, bilateral inspiratory crackles can be appreciated. Lower lung sultana Abdomen: Soft, ND, NT Extremities: - Edema, - Calf tenderness Assessment and plan: Sepsis - likely 2/2 bilateral lower lobe pneumonia, in the setting of suspected interstitial lung disease - Clinically patient has reported significant improvement in SOB, cough - Physical with crackles at bilateral lung sultana - Has been transitioned off of supplemental oxygen - Leukocytosis improving - CT chest 02/14: Chronic fibrosis and bronchiectasis. Superimposed mild scattered interstitial and alveolar infiltrate in both lower lung zones. - c/w Ceftriaxone and Azithromycin (Day #3) - Dr. Irene (Clarifier) has been consulted; appreciate their input A. fib with RVR - likely 2/2 sepsis and non-compliance with medication - Currently, patient's rate is not optimized; HR this morning were in 120s - Will increase frequency of Metoprolol tartrate to q6h; consider switching to M etoprolol Succinate when rate is well controlled - Plan for Diltiazem drip has been cancelled - INR is sub-therapeutic; will increase dose of Warfarin to 5mg PO daily until therapeutic INR range of 2-3 is achieved - c/w Telemetry monitoring s/p Lactic acidosis Elevated troponin - likely 2/2 NSTEMI (Type II) / Demand ischemia - Currently patient denies any chest pain, shortness of breath or palpitations - Troponins have trended down - EKG 02/14: Reviewed without any significant ST segment / T wave abnormalities - ECHO: EF 60%, Unable to assess diastolic functin, moderate MR, moderate LA dilation, mildly dilated RV Acute kidney injury - likely 2/2 pre-renal etiology - Base creatinine of 1.5 - Creatinine has improved from the point of admission; appears to be at baseline currently - Will discontinue IV fluid hydration at this time Elevated Ammoniemia - Possibly 2/2 hepatic congestion? dysfunction/cirrhosis? - Currently, patient appears to be mildly confused, however remains oriented to person, place and time - Continues to have regular bowel movements - Levels have shown some improvement - Mild elevation of AST / ALT noted in 2:1 ratio - Liver US 02/13: 1. Coarsened liver echotexture with normal size measuring 14 cm. 2. Normal gallbladder. - s/p lactulose - Will check hepatitis profile Memory Loss - likely 2/2 dementia, less likely 2/2 ammonia - No focal deficits noted on physical exam - Will check Vitamin B12 and RPR to evaluate for reversible causes Hyponatremia - likely 2/2 hypotonic hypovolemic etiology - Improving - s/p IV fluid hydration Normocytic anemia - Hg appears to be stable throughout hospitalization CAD s/p CABG - c/w Rosuvastatin and Metoprolol - Will start ASA 81 DLP - c/w Rosuvastatin and Fenofibrate DM2 with hypoglycemia - c/w ISS History of non-Hodgkin's lymphoma - c/w outpatient follow-up with oncology. History of skin cancers / History of bladder cancer - c/w outpatient follow-up DVT prophylaxis - c/w full anticoagulation with Coumadin Disposition: - Will downgrade to PCU - Will start physical therapy and occupational therapy VS,Grant, I+O VS, Grant, I+O Laboratory Tests 02/14/19 17:50 02/15/19 05:21 02/15/19 07:34 Vital Signs Date Time Temp Pulse Resp B/P (MAP) Pulse Ox O2 Delivery O2 Flow Rate FiO2 02/15/19 08:40 112 120/83 02/15/19 08:00 98.3 20 95 Room Air 02/15/19 02:00 1.0 I&O- Last 24 Hours up to 6 AM 02/15/19 06:00 Intake Total 3285 ml Output Total 1875 ml Balance 1410 ml JACK JENNINGS MD Feb 15, 2019 12:25
[2019-02-15] MEDS: ASPIRIN 81 MG ENTERIC TAB PO SCH (13:02)
[2019-02-15] MEDS ORDERED: SLF 3 ML SYR IV PRN (15:15)
--- NOTE | 2019-02-15 16:25 | CCN ---
DATE: 02/15/2019 Patient was seen and examined during this morning during bedside rounds. Patient reports that he feels his cough has been improving. He has not noticed as much sputum production, although he does find after his nebulizer treatments and acapella that he is able to bring up some mucus. He feels that this has been improving. He denies any significant shortness of breath or chest pain currently. Has not had any fevers or chills. Patient also denies any bowel movements recently. PHYSICAL EXAMINATION: Temperature 98.3, pulse 112, respirations 20, blood pressure 120/83, oxygen saturation 95% on room air. INPUT AND OUTPUT: In 2.3, out 1.1 liters. GENERAL: Patient is sitting in bed, does not appear to be in acute distress, is awake and alert, answering questions appropriately. He is not using any accessory muscles for respirations. HEENT: Normocephalic, atraumatic. Pupils reactive to light bilaterally. Mucous membranes are moist. Patient has a scar on his posterior scalp that is well-healed with some scabs. Neck is supple. No palpable adenopathy. CARDIAC: Irregularly irregular with a normal S1, S2. Unable to appreciate any murmurs. PULMONARY: There are crackles bilaterally in the bases with improvement in the wheezing and rhonchi. ABDOMEN: Soft, obese, nontender, nondistended. No palpable mass. EXTREMITIES: There is no significant lower extremity edema noted bilaterally LABORATORY DATA: WBC 12.9, hemoglobin 11.8, platelets 263. CHEMISTRY: Sodium is 135, potassium 3.6, chloride is 102, bicarbonate is 24, BUN 24, creatinine is 1.51, glucose is 112. AST 139, ALT 88, ammonia level to 88. CPK is 28. Troponin trending down to 0.26. INR 1.83. MICROBIOLOGY: Respiratory panel negative. Sputum culture: Gram stain showed gram positive cocci in chains and clusters and gram-negative coccobacillus and gram-negative rods. Final culture results are pending. ASSESSMENT AND PLAN: Mr. Jenkins is a 78-year male with history of non-Hodgkin's lymphoma status post chemotherapy with a relapse and status post maintenance rituximab now in remission, history of superficial urothelial cell carcinoma of the bladder, history of squamous cell carcinoma of the scalp and lip, atrial fibrillation on anticoagulation with Coumadin, coronary artery disease (CAD) status post coronary artery bypass graft (CABG), who presented with complaints of altered mental status, shortness of breath and productive cough. Patient was found on admission to have atrial fibrillation with rapid ventricular response, likely secondary to an acute bronchiectasis exacerbation and infection. Patient was admitted to the intensive care unit (ICU) for further management and rate control. - Patient's CT chest on admission had showed evidence of chronic interstitial lung disease, which is predominately basilar and peripheral, with some evidence of honeycombing of bronchiectasis. Based on the CT pattern, there is suggestion of usual interstitial pneumonia (UIP), although he did also have some few areas of mild alveolar infiltrates noted, which may possibly be infectious in etiology or inflammatory, more consistent with nonspecific interstitial pneumonia (NSIP) . Given the appearance, however, suspect more of a fibrotic UIP pattern for his interstitial lung disease (ILD). - Patient did have bronchiectasis on imaging and he likely presented with acute bronchiectasis exacerbation with increased cough and sputum production. He has a history of Pseudomonas in the urine, so would need to follow up a sputum culture to make sure that he does not have any significant resistant organisms. - Continue ceftriaxone for now, as he has remained afebrile and his leukocytosis is improving. - Will continue with nebulizer treatments with DuoNebs every 6 hours and acapella for mucus clearance. - Continue budesonide nebulizers twice a day. - Continue with rate control medications as per cardiology and telemetry monitoring. - Continue monitoring the patient's oxygen saturation. He has been maintaining above 90-91% on room air at rest. Once he is more rate-controlled, he will need to be ambulated to see if he desaturates with ambulation and may potentially require supplemental oxygenation with exertion. - Patient will need followup as an outpatient with pulmonary for further evaluation of his interstitial lung disease including testing with connective tissue disease serology panel. Given the appearance on CT, the differential would be possible ILD related to his previous chemotherapy treatment or idiopathic pulmonary fibrosis (IPF). He would need further evaluation before he is able to determine the potential etiology before he may be able to be started on potential treatment. - Patient will need pulmonary function tests (PFTs) as an outpatient. - Patient's procalcitonin was mildly elevated at 0.74. Therefore, would follow up the results of his sputum culture to aid in de-escalation of antibiotics. If the patient continues to do well, may be able to transition him from intravenous (IV) to an oral antibiotics to complete a 7-10 day course. Deep venous thrombosis (DVT) prophylaxis. FULL CODE.
[2019-02-15] MEDS ORDERED: WARFARIN SOD 5 MG TAB PO SCH (17:00)
[2019-02-15 18:41] LABS: HEMOGLOBIN 12.1 g/dl (13.5-17.5); MEAN CORPUSCULAR HEMOGLOBIN 30.6 pg (27.0-33.0); MEAN CORPUSCULAR HGB CONC 32.7 g/dl (32.0-36.5); MEAN CORPUSCULAR VOLUME 93.7 fl (80.0-96.0); PLATELET COUNT, AUTOMATED 289 10^3/uL (150-450); RED BLOOD COUNT 3.95 10^6/uL (4.30-6.10); WHITE BLOOD COUNT 11.9 10^3/uL (4.0-10.0)
[2019-02-15] MEDS: FENOFIBRATE 48 MG TAB (TRICOR) PO SCH (20:43)
[2019-02-15] MEDS: ROSUVASTATIN 10 MG TAB (CRESTOR) PO SCH (20:43)
[2019-02-15] MEDS: SLF 3 ML SYR IV SCH (20:44)
[2019-02-16] MEDS: IPRATROPIUM 0.5MG/ALBUTEROL 2.5MG INH SOL UD 3ML (DUONEB)(J7620) NEB SCH ×3 (01:55→13:36)
[2019-02-16 04:01] VITALS: BP 147/76
[2019-02-16] MEDS: SLF 3 ML SYR IV SCH ×2 (05:20→14:00)
[2019-02-16] MEDS: METOPROLOL TART 50 MG TAB PO SCH ×2 (05:20→12:09)
[2019-02-16 05:29] LABS: HEMATOCRIT 36.2 % (42.0-52.0); HEMOGLOBIN 11.9 g/dl (13.5-17.5); MEAN CORPUSCULAR HEMOGLOBIN 30.6 pg (27.0-33.0); MEAN CORPUSCULAR HGB CONC 32.9 g/dl (32.0-36.5); MEAN CORPUSCULAR VOLUME 93.1 fl (80.0-96.0); PLATELET COUNT, AUTOMATED 270 10^3/uL (150-450); RED BLOOD COUNT 3.89 10^6/uL (4.30-6.10); WHITE BLOOD COUNT 11.8 10^3/uL (4.0-10.0)
[2019-02-16 05:38] LABS: INR 2.11; PROTHROMBIN TIME 23.4 SECONDS (11.8-14.0)
[2019-02-16 05:59] LABS: ALBUMIN 2.6 GM/DL (3.2-5.2); BILIRUBIN,TOTAL 0.6 MG/DL (0.2-1.0); CALCIUM LEVEL 8.6 MG/DL (8.8-10.2); CREATININE FOR GFR 1.33 MG/DL (0.70-1.30); GLOMERULAR FILTRATION RATE 55.5 (>42); MAGNESIUM LEVEL 1.9 MG/DL (1.8-2.4); POTASSIUM SERUM 3.4 MEQ/L (3.5-5.1); TOTAL PROTEIN 6.9 GM/DL (6.4-8.2)
[2019-02-16] MEDS ORDERED: POTASSIUM CHLORIDE 10 MEQ SR TABLET PO ONE (07:45)
[2019-02-16 08:00] VITALS: BP 122/69
[2019-02-16] MEDS: DOCUSATE SODIUM 100 MG CAP PO SCH (08:34)
[2019-02-16] MEDS: ASPIRIN 81 MG ENTERIC TAB PO SCH (08:34)
[2019-02-16] MEDS: MULTIVITAMINS/MINERALS THERAP 1 TAB PO SCH (08:35)
[2019-02-16] MEDS: ASCORBIC ACID 500 MG TAB PO SCH (08:35)
[2019-02-16] MEDS: HumaLOG INSULIN (NovoLOG) PER UNIT SC SCH ×2 (08:36→12:00)
[2019-02-16] MEDS: BUDESONIDE 0.5 MG/2 ML INHALATION SUSPENSION INH SCH (08:48)
--- NOTE | 2019-02-16 09:23 | IPNPDOC ---
Date Seen The patient was seen on 02/16/19. Progress Note Patient was discharged on 02/16/2019, please see discharge summary for further documentation. I saw and evaluated the patient. Discussed with resident and medical students and agree with resident's findings and plan as documented in the resident's note. VS, I&O, 24H, Fishbone Vital Signs/I&O Vital Signs Date Time Temp Pulse Resp B/P (MAP) Pulse Ox O2 Delivery O2 Flow Rate FiO2 02/16/19 08:00 97.8 89 18 122/69 (86) 95 Room Air 02/15/19 02:00 1.0 I&O- Last 24 Hours up to 6 AM 02/16/19 06:00 Intake Total 2173 ml Output Total 1950 ml Balance 223 ml Laboratory Data 24H LABS Laboratory Tests 2 02/15/19 11:41: Bedside Glucose (Misc Panel) 142H 02/15/19 17:31: Bedside Glucose (Misc Panel) 164H 02/15/19 18:16: Nucleated Red Blood Cells % (auto) 0.0 02/15/19 19:50: Bedside Glucose (Misc Panel) 141H 02/16/19 01:35: 02/16/19 04:15: 02/16/19 04:58: Nucleated Red Blood Cells % (auto) 0.0, Prothrombin Time 23.4H, Prothromb Time International Ratio 2.11, Anion Gap 10, Glomerular Filtration Rate 55.5, Calcium Level 8.6L, Magnesium Level 1.9, Total Bilirubin 0.6, Aspartate Amino Transf (AST/SGOT) 100H, Alanine Aminotransferase (ALT/SGPT) 92H, Alkaline Phosphatase 98, Total Protein 6.9, Albumin 2.6L, Albumin/Globulin Ratio 0.60L CBC/BMP Laboratory Tests 02/15/19 18:16 02/16/19 04:58 Microbiology Microbiology 02/13/19 Gram Stain - Final, Resulted 02/13/19 Sputum Culture, Resulted Pending 02/13/19 Respiratory Virus Panel (PCR) (SUSAN) - Final, Complete 02/13/19 Blood Culture - Preliminary, Resulted No Growth after 48 hours. All Specime... 02/13/19 Blood Culture - Preliminary, Resulted No Growth after 48 hours. All Specime... LEXIE CISNEROS-3 Feb 16, 2019 09:23 NIDIA LYNN PGY-1 Feb 16, 2019 11:51 IVA SARKAR MD Feb 17, 2019 08:06
[2019-02-16] MEDS: cefTRIAXone SOD 1 GM in D5W MINI-BAG PLUS 50 ML IV SCH (10:00)
[2019-02-16] MEDS ORDERED: CEFD1CAP8 PO (10:36)
[2019-02-16] MEDS ORDERED: METO200T28 PO (10:57)
--- NOTE | 2019-02-16 11:19 | DS.PDOC ---
Discharge Summary General Date of Admission Feb 13, 2019 at 17:26 Date of Discharge Feb 16, 2019 Primary Care Physician: Destiny Roberts Attending Physician: IVA SARKAR MD Discharge Summary PROCEDURES PERFORMED DURING STAY: None. ADMITTING DIAGNOSES: 1. Sepsis 2/2 b/l lower lobe PNA 2. A. Fib w/ RVR 3.Lactic Acidosis 4.CAD s/p CABG 5.Hyper Ammonemia 6.Elevated Troponins 7.Hx of NHL 8.Hx of Skin Cancer 9.Hx of Bladder Cancer DISCHARGE DIAGNOSES: 1. B/L lower lobe PNA 2. A. 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 fib, on anticoagulation with Coumadin, comes to the ER because he was sent from the doctor's office because of abnormal labs. The patient was found to have leukocytosis and A. fib with RVR. The patient states that over the last 34 days he has been feeling "under the weather" and has been having cough which has been progressive and now he is having sputum which is greenish in color. He states that he has having night sweats but denies any fever. Patient denies any chest pain, any shortness of breath or any declining physical status. The patient states that he feels more tired than before. The patient also states that he has no diarrhea. The patient denies any travel outside the country, but he does state that he has been going fishing and was recently out a couple of days back. The patient denies any sick contacts, any flu-like symptoms. The patient denies any abdominal pain, any diarrhea, any nausea or any vomiting. He denies any rash. HOSPITAL COURSE: Patient had positive criteria for lactic acidosis, tachycardia and source of infection identified on CXR and chest CT patient was started empirically on Rocephin and azithromycin. CBC showed elevated WBC at 15.2 and normocytic anemia with Hgb at 12.3. Procal, Sputum and Blood cultures were sent. Respiratory panel was sent. Patient was started on supplemental O2. Dual nebs were ordered. 2-D echo was performed to rule out CHF components. ECG showed no evidence of CT. Patient appeared slightly dehydrated, 75 mL normal saline continuous drip was started. Patient was started on home dose of Coumadin as well as metoprolol tartrate for A. fib with RVR. Patient was monitored on telemetry. Patient was continued on home medications Rosuvastatin, Diltiazem and basal Insulin. Pulmonology was consulted. Patient's azithromycin was discontinued due to potential for arrhythmia. Patient's INR was subtherapeutic warfarin dose was increased to 5 mg patient demonstrated elevated ammonia at 100. One dose of 15 mL lactulose was given. Liver ultrasound was ordered. Patient's troponins trended downwards to 0.26 from 0.63. Patient was started on aspirin 81 mg. Patient's potassium was low at 3.4, 40 mg potassium was given. Patient's INR reached therapeutic levels at 2.11. Patient's lactic acid improved to 1.5 from 3.3. Patient's A. fib was rate controlled around 90-100bpm, consistent with patient's baseline. He was switched to metoprolol succinate on discharge. WBC count trended downwards to 11.8. Sputum Gram stain showed many gram-positive cocci and gram-negative cocci. Patient was switched to cefdinir 300 mg BID for 5 days. On discharge, the patient was found to be stable and safe for discharge. DISCHARGE MEDICATIONS: Please see below. ALLERGIES: Please see below. PHYSICAL EXAMINATION ON DISCHARGE: VITAL SIGNS: Please see below. GENERAL: Patient is pleasant and cooperative, sitting up comfortably in bed, alert and oriented in no acute distress HEENT: Normocephalic, atraumatic. Scar on top of patients head from previous SCC removal. No scleral icterus. PERRLA. EOMI. no nasal discharge. No tracheal deviation. No obvious swollen lymph nodes CARDIOVASCULAR: Scar noted s/p CABG. Irregularly Irregular rhythm noted. Normal S1 and S2. No murmurs, gallops or rubs noted RESPIRATORY: Mild lower lobe rales b/l. No wheezes or rhonchi noted. Equal air entry bilaterally ABDOMINAL:. No obvious lesions noted. Normal bowel sounds in all 4 quadrants. No pain, tenderness, guarding or rigidity EXTREMITIES:. 2/4 pulses noted throughout. No leg swelling or tenderness NEUROLOGICAL: A&O x3. Spontaneous movements of all extremities. No focal deficits noted PSYCHOLOGICAL: Mood and affect were appropriate LABORATORY DATA: Please see below. IMAGIN02/13/2019. Chest x-ray: Underlying interstitial fibrosis with poor ventilation and basilar atelectatic change 02/13/[address]: Chronic fibrosis and bronchiectasis. Superimposed mild scattered interstitial and alveolar infiltrate in both lower lung zones 02/13/2019 Liver US: Coarsened liver echotexture with normal size measuring 14 cm. normal gallbladder PROGNOSIS: good ACTIVITY: As tolerated. DIET: Consistent Carbohydrate Diet DISCHARGE PLAN: - Continue all medication as prescribed - Follow-up with PCP within 7 days - Continue scheduled F/Us with Oncologist - Return to the ER if you experience any problems DISPOSITION: 01 Home, Self-Care. DISCHARGE CONDITION: Stable. TIME SPENT ON DISCHARGE: Greater than 35 minutes. I saw and evaluated the patient. Discussed with resident and medical students and agree with resident's findings and plan as documented in the resident's note. Vital Signs/I&Os Vital Signs Date Time Temp Pulse Resp B/P (MAP) Pulse Ox O2 Delivery O2 Flow Rate FiO2 02/16/19 08:00 97.8 89 18 122/69 (86) 95 Room Air 02/15/19 02:00 1.0 I&O- Last 24 Hours up to 6 AM 02/16/19 06:00 Intake Total 2173 ml Output Total 1950 ml Balance 223 ml Laboratory Data Labs 24H Laboratory Tests 2 02/15/19 11:41: Bedside Glucose (Misc Panel) 142H 02/15/19 17:31: Bedside Glucose (Misc Panel) 164H 02/15/19 18:16: Nucleated Red Blood Cells % (auto) 0.0 02/15/19 19:50: Bedside Glucose (Misc Panel) 141H 02/16/19 01:35: Methicillin-Resist S.aureus DNA PCR NOT DETECTED 02/16/19 04:15: 02/16/19 04:58: Nucleated Red Blood Cells % (auto) 0.0, Prothrombin Time 23.4H, Prothromb Time International Ratio 2.11, Anion Gap 10, Glomerular Filtration Rate 55.5, Calcium Level 8.6L, Magnesium Level 1.9, Total Bilirubin 0.6, Aspartate Amino Transf (AST/SGOT) 100H, Alanine Aminotransferase (ALT/SGPT) 92H, Alkaline Phosphatase 98, Total Protein 6.9, Albumin 2.6L, Albumin/Globulin Ratio 0.60L CBC/BMP Laboratory Tests 02/15/19 18:16 02/16/19 04:58 FSBS Laboratory Tests Test 02/15/19 11:41 02/15/19 17:31 02/15/19 19:50 Range/Units Bedside Glucose (Misc Panel) 142 164 141 83-110 MG/DL Microbiology Microbiology 02/13/19 Gram Stain - Final, Resulted 02/13/19 Sputum Culture, Resulted Pending 02/13/19 Respiratory Virus Panel (PCR) (SUSAN) - Final, Complete 02/13/19 Blood Culture - Preliminary, Resulted No Growth after 48 hours. All Specime... 02/13/19 Blood Culture - Preliminary, Resulted No Growth after 48 hours. All Specime... Discharge Medications Scheduled Ascorbic Acid (Ascorbic Acid) 500 Mg Tablet, 500 MG PO DAILY, (Reported) Cefdinir (Cefdinir) 300 Mg Capsule, 300 MG PO BID Fenofibrate Nanocrystallized (Fenofibrate) 48 Mg Tablet, 48 MG PO QHS, (Reported) Glimepiride (Glimepiride) 4 Mg Tab, 4 MG PO BID, (Reported) Insulin Glargine (Lantus) 100 Unit/Ml Inj, 1 DOSE SC QHS, (Reported) CHECKS BS PRIOR TO DOSE, ADJUSTS DOSE ACCORDINGLY Lactulose (Lactulose) 10 Gm/15 Ml Solution, 30 ML PO BID for hyperammonemia Metformin HCl (Metformin HCl) 500 Mg Tablet, 500 MG PO BID, (Reported) Metoprolol Succinate (Metoprolol Succinate) 200 Mg Tab.er.24h, 200 MG PO DAILY Multivit-Min/FA/Lycopen/Lutein (Centrum Silver Ultra Men's Tab) 1 Each Tablet, 1 TAB PO DAILY, (Reported) Rosuvastatin Calcium (Rosuvastatin Calcium) 20 Mg Tablet, 20 MG PO QHS, (Reported) Warfarin Sodium (Warfarin Sodium) 5 Mg Tab, 5 MG PO 2XW, (Reported) TUES/THURS Warfarin Sodium (Warfarin Sodium) 2.5 Mg Tablet, 2.5 MG PO 5XW, (Reported) SUN/MON/SAT/SAT/SAT Scheduled PRN Acetaminophen (Acetaminophen) 325 Mg Tab, 650 MG PO Q4H PRN for PAIN, (Reported) Allergies Coded Allergies: coconut (Verified Allergy, Severe, facial swelling, 02/15/19) LEXIE CISNEROS OMS-3 Feb 16, 2019 11:19 NIDIA LYNN PGY-1 Feb 16, 2019 12:03 IVA SARKAR MD Feb 17, 2019 08:07
[2019-02-16 12:00] VITALS: BP 122/57
[2019-02-16 12:09] VITALS: BP 122/57
[2019-02-16 12:28] LABS: HEPATITIS A ANTIBODY IGM NEGATIVE (NEGATIVE); HEPATITIS B CORE ANTIBODY IGM NEGATIVE (NEGATIVE); HEPATITIS C VIRUS ABY INDEX 0.1 INDEX (<0.8); VITAMIN B12 LEVEL 587 PG/ML (247-911)
[2019-02-16 13:05] LABS: HEPATITIS B SURFACE ANTIGEN POSITIVE (NEGATIVE)
[2019-02-16] MEDS ORDERED: LACT10SO29 PO (14:17)
--- NOTE | 2019-02-16 14:33 | CCN ---
DATE: 02/16/2019 CRITICAL CARE PROGRESS NOTE: The patient was seen and examined this morning during bedside rounds. The patient feels his breathing has been improving. He also reports his cough has improved and he has not had as much mucus production, although he does continue to have an occasional cough. He denies any chest pain. No significant dyspnea. No fevers or chills. He denies any increased lower extremity edema. The patient has not been ambulating much but he has been moving around the room. PHYSICAL EXAMINATION: Temperature 97.8, pulse 89, respirations 18, blood pressure 122/69, oxygen saturation 95% on room air. General: Patient is sitting in the chair, does not appear to be any acute distress. He is awake and alert, answering questions appropriately. He is not using any accessory muscles for respiration. HEENT: Normocephalic, atraumatic. Pupils are reactive to light bilaterally. Mucous membranes are moist. The patient has a scar on his posterior scalp that is well healed with some scabs. Neck is supple and there is no palpable cervical adenopathy. Cardiovascular: Irregularly, irregular with a normal S1, S2. Unable to appreciate any murmurs. Pulmonary: The patient has a few crackles bilaterally in the bases but no significant wheezing or rhonchi. Abdomen is soft, obese. It is nontender and nondistended. Bowel sounds are present. Extremities: There is no significant lower extremity edema noted bilaterally. LABORATORY DATA: WBC 11.8, hemoglobin 11.9, platelets 270. Chemistry: Sodium is 136, potassium 3.4, chloride is 103, bicarbonate 23, BUN 20, creatinine is 1.33, glucose is 130. Hepatitis screening tests are pending. Microbiology: Atypical pneumonia testing are pending including Mycoplasma, Legionella and strep pneumoniae. ASSESSMENT AND PLAN: Mr. Jenkins is a 78-year-old male with a history of non-Hodgkin's lymphoma status post chemotherapy with a relapse and is status post maintenance rituximab now in remission, history of superficial urothelial cell carcinoma of the bladder, history of skin with cell carcinoma of the scalp and lip, atrial fibrillation on anticoagulation, CAD status post CABG, who presented with complaints of altered mental status, shortness breath and productive cough. The patient was found on admission to be in atrial fibrillation with rapid ventricular response likely secondary to an acute bronchiectasis exacerbation and infection. The patient was initially admitted in the intensive care unit (ICU) for rate control of his atrial fibrillation and then was downgraded yesterday to progressive care unit (PCU). - The patient did have evidence of bronchiectasis on his imaging and he did present with likely acute bronchiectasis exacerbation with increased cough and sputum production. His sputum cultures final results are still pending, and although the patient has a history of Pseudomonas in the urine and he is only on ceftriaxone he has remained afebrile and his leukocytosis has been improving. - Therefore, will followup final results of his sputum culture as well as the results of the atypical pneumonia workup. Continue with ceftriaxone for now. If patient continues to do well may be able transition him from IV to oral antibiotics to complete a total of 7-10 day course of antibiotics. - Continue with nebulizer treatments with DuoNebs every 6 hours Acapella for mucus clearance. - Continue with budesonide nebulizers twice a day. - Continue with rate control medications as per cardiology and telemetry monitoring. - Would get physical therapy (PT) for ambulation for the patient and would monitor his oxygen saturations with ambulation to make sure he does not have any significant desaturation. - The patient's CT on admission did show evidence of chronic interstitial lung disease with a pattern that can be suggestive of usual interstitial pneumonia (UIP). But he did have a few areas of some mild alveolar infiltrates noted, which may possibly be infectious in etiology or inflammatory, which would be more consistent with nonspecific interstitial pneumonia (NSIP). Given the appearance however, UIP is suspected more and the differential would include idiopathic pulmonary fibrosis (IPF) or possibly be related to his previous chemotherapy treatment. The patient does need followup with pulmonary as an outpatient for further evaluation of his interstitial lung disease (ILD). - The patient will also need pulmonary function testing as an outpatient. - The patient should be discharged with a nebulizer machine and DuoNebs with an Acapella device for continued mucus clearance as needed as an outpatient. Deep venous thrombosis (DVT) prophylaxis. FULL CODE. Please do not hesitate to call with any further questions or concerns.
[2019-02-17] MEDS ORDERED: WARFARIN SOD 5 MG TAB PO SCH (17:00)
[2019-02-19 00:06] LABS: BODY FLUID CULTURE Not Indicated (.); LEGIONELLA ANTIGEN URINE Negative (Negative); ORGANISM ID Not indicated. (.); SPECIMEN SOURCE Urine (.); URINE STREP PNEUMONIAE ANTIGEN Negative (Negative)
== END 2019-02-16 16:40 | disposition home or self-care (01) | DRG 871 ==
LOC: M ED 11:36 → M ED INP 17:26 → M ICU 22:35 → M PCU 02-15 14:41
PROVIDERS: ADMIT Internal Medicine; ATTEND Internal Medicine
DX: A41.9 Sepsis, unspecified organism (principal); J18.1 Lobar pneumonia, unspecified organism; E87.2 Acidosis; N17.9 Acute kidney failure, unspecified; E72.20 Disorder of urea cycle metabolism, unspecified; I24.8 Other forms of acute ischemic heart disease; J47.1 Bronchiectasis with (acute) exacerbation; E87.1 Hypo-osmolality and hyponatremia; F03.90 Unspecified dementia, unspecified severity, without behavioral disturbance, psychotic disturbance, mood disturbance, and anxiety; E78.5 Hyperlipidemia, unspecified; J84.10 Pulmonary fibrosis, unspecified; E86.0 Dehydration; D64.9 Anemia, unspecified; I48.91 Unspecified atrial fibrillation; I25.10 Atherosclerotic heart disease of native coronary artery without angina pectoris; E11.649 Type 2 diabetes mellitus with hypoglycemia without coma; Z85.828 Personal history of other malignant neoplasm of skin; Z85.51 Personal history of malignant neoplasm of bladder; Z95.1 Presence of aortocoronary bypass graft; Z79.01 Long term (current) use of anticoagulants; Z79.4 Long term (current) use of insulin; Z79.899 Other long term (current) drug therapy; Z87.891 Personal history of nicotine dependence; Z92.21 Personal history of antineoplastic chemotherapy; Z85.79 Personal history of other malignant neoplasms of lymphoid, hematopoietic and related tissues

== ENCOUNTER → 2019-03-17 | Outpatient (CLI) | payer MEDICARE ==
[~2019-03-17] MED LIST changes: +CEFD1CAP8 PO; +CENTTAB16 PO; +GASTROGRAFIN SOLUTION 30ML (Q9963) As Ordered ONE; +ISOVUE-370 76% 100ML VIAL (Q9967) As Ordered ONE; +LACT10SO29 PO; +METF-839 PO; +METO200T28 PO; +ROSU10TA6 PO; +ROSU20TA5 PO; +VITA500C24 PO; +WARF-18 PO
--- NOTE | 2019-03-17 14:27 | REP ---
Clinical: History of B-cell lymphoma. Technique: Axial contrast enhanced images from the lung bases to the pubic symphysis using oral (per protocol) and 100 ml Isovue 370 intravenous contrast material with coronal and sagittal re-formations. Delayed images of the abdomen obtained. Comparison: 07/25/2016. Findings: There is a new focus of soft tissue along the right para-aortic space inferior to the level of the right kidney (images 76-99) which is highly suggestive of adenopathy and warrants investigation. No further adenopathy or mass lesion is appreciated. Fatty infiltration to the liver noted without focal hepatic lesion. Spleen, pancreas, bilateral adrenal glands and kidneys are normal / stable. Incidental simple 2.1 cm exophytic cyst off of the upper pole right kidney is unchanged. The enteric system is without obstruction or acute inflammatory process. Pelvis demonstrates normal bladder and age appropriate prostate/seminal vesicles. No ascites. Congenital left-sided IVC again noted. Atherosclerotic changes to the abdominal aorta and branch vessels noted without aneurysm or dissection. Musculoskeletal structures demonstrate degenerative changes without focal osseous abnormality. The lung bases demonstrate advanced chronic emphysematous changes with bronchiectasis and scattered scarring / fibrosis. No consolidation or effusion. Impression: 1. Soft tissue lesion versus adenopathy along the right para-aortic retroperitoneal space at the L3-4 level represents a relatively new finding compared to 2017. 2. Nonacute findings as described above. Electronically Signed by Patricio Ham MD 03/17/2019 02:20 P
== END ==
LOC: M RAD 12:12
PROVIDERS: ATTEND Internal Medicine Medical Oncology
DX: C83.30 Diffuse large B-cell lymphoma, unspecified site (principal); K76.0 Fatty (change of) liver, not elsewhere classified; N28.1 Cyst of kidney, acquired; Q26.1 Persistent left superior vena cava
CPT/HCPCS: 74177; Q9963; Q9967

== ENCOUNTER → 2019-04-07 | Outpatient (CLI) | payer MEDICARE ==
[~2019-04-07] MED LIST changes: +ATIV1TAB7 PO; -GASTROGRAFIN SOLUTION 30ML (Q9963) As Ordered ONE; -ISOVUE-370 76% 100ML VIAL (Q9967) As Ordered ONE
--- NOTE | 2019-04-07 18:36 | REP ---
PET/CT: History: Restaging non-Hodgkin's lymphoma. Comparison PET-CT study September 15, 2009. Comparison is made with CT abdomen and pelvis March 17, 2019. Chest CT February 13, 2019. TECHNIQUE: 45 minutes following the intravenous injection of a 9.22 mCi dose of F-18 FDG, three-dimensional PET scintigraphy is acquired from the skull base to the proximal thighs. Triplanar noncontrast CT scanning is acquired through the same anatomic range for attenuation correction, and image registration with scan parameters optimized to minimize radiation exposure to the patient. PET scintigraphy and CT datasets were fused and displayed on a workstation with multiplanar and projection display capability. PET/CT Findings: There is asymmetric tonsillar uptake on the left, maximum standard uptake value 8.49. This may be normal variant. Head and neck soft tissues are otherwise unremarkable. There is no abnormal hypermetabolic loida uptake in the thorax. There is a fairly extensive interstitial fibrosis pattern in the lungs. No abnormal pulmonary parenchymal hypermetabolic uptake is seen however. The recently noted soft tissue mass in the right retroperitoneum adjacent to the aorta (note that the patient has a left-sided inferior vena cava) shows hypermetabolic uptake, maximum standard uptake value 16.89. No other abnormal loida uptake is seen in the abdomen or pelvis. Normal hepatic and splenic uptake are seen. There are two bone lesions. There is extensive involvement of the entire iliac bone on the right side with maximum standard uptake value in the posterior iliac crest and 16.32. Elsewhere in the right iliac bone maximum standard uptake value is 13.95. Lastly there is a small focus of hypermetabolic uptake either adjacent to or in the left inferior aspect of the T10 vertebral body where maximum standard uptake value is 6.66. No bony destruction is seen here. Impression: Hypermetabolic uptake noted in the retroperitoneal adenopathy seen on recent abdominal CT study to the right of the aorta. The patient has a left-sided IVC. Hypermetabolic uptake is seen throughout the right iliac bone and at the level of the left side of the T10 vertebral body consistent with skeletal involvement. Electronically Signed by Sumit Galeana MD 04/07/2019 07:07 P
== END ==
LOC: M PLARAD 12:58
PROVIDERS: ATTEND Internal Medicine Medical Oncology
DX: C85.94 Non-Hodgkin lymphoma, unspecified, lymph nodes of axilla and upper limb (principal)
CPT/HCPCS: 78815; A9552

== ENCOUNTER → 2019-05-04 | Outpatient (CLI) | payer MEDICARE ==
[~2019-05-04] MED LIST changes: -FENO48TA13 PO; +FENO48TA7 PO; -GLIM4TAB3 PO; +GLIM4TAB5 PO; +LIDOCAINE 1% MDV 20ML VIAL As Ordered ONE
[2019-05-04 12:39] VITALS: BP 139/67
--- NOTE | 2019-05-04 19:03 | REP ---
CT-GUIDED RIGHT RIGHT RETROPERITONEAL MASS BIOPSY The procedure was performed under the direct supervision of Dr. Galeana. The patient has a history of A hypermetabolic soft tissue mass in the right retroperitoneum adjacent to the aorta seen on a previous PET scan dated 04/07/2019. The risks and benefits of the procedure were explained to the patient and informed consent was obtained. The right retroperitoneal mass was localized using CT guidance. The skin was prepped and draped in a sterile fashion. 1% lidocaine was used as a local anesthetic. Using CT guidance a 19/20 gauge coaxial needle biopsy system was inserted and advanced into the mass. Eight core biopsy samples were obtained and sent to lab. The patient tolerated the procedure well and there were no immediate complications. After the appropriate amount of monitored convalescence the patient was discharged from the department. Electronically Signed by BRENTON Berry 05/04/2019 03:51 P Electronically Signed by Sumit Galeana MD 05/04/2019 06:55 P
== END ==
LOC: M IRPRO 10:01
PROVIDERS: ATTEND Internal Medicine Medical Oncology
DX: C85.10 Unspecified B-cell lymphoma, unspecified site (principal)

== ENCOUNTER → 2019-10-14 | Outpatient (CLI) | payer MEDICARE ==
[~2019-10-14] MED LIST changes: +GASTROGRAFIN SOLUTION 30ML (Q9963) As Ordered ONE; +ISOVUE-370 76% 100ML VIAL As Ordered ONE; -LACT10SO29 PO; +LACT20EL PO; -LIDOCAINE 1% MDV 20ML VIAL As Ordered ONE; +REVL15CA PO; +REVL20CA PO; +VITA200028 PO
--- NOTE | 2019-10-14 16:59 | REP ---
CT CHEST WITHOUT CONTRAST: HISTORY: Restage follicular non-Hodgkin's lymphoma. History of pneumonia. Comparison chest CT study February 13, 2019. CT FINDINGS: Median sternotomy wires and coronary bypass grafting material is visible. Mild cardiac enlargement is again noted. Vascular calcification is present. There is no evidence of pleural or pericardial effusion. No hilar or mediastinal mass or adenopathy is observed. There is a fairly extensive predominately peripheral pattern of interstitial pulmonary fibrosis and honeycombing consistent with advanced COPD. These findings are unchanged. The visualized upper abdominal structures are unremarkable. IMPRESSION: No evidence of mass or adenopathy. Advanced COPD pulmonary fibrosis pattern. Prior sternotomy coronary artery bypass grafting. Electronically Signed by Sumit Galeana MD 10/15/2019 07:56 A
--- NOTE | 2019-10-14 17:08 | REP ---
CT ABDOMEN AND PELVIS WITH ORAL BUT WITHOUT IV CONTRAST: HISTORY: Restage follicular non-Hodgkin's lymphoma. Comparison abdomen pelvis CT study is from March 17, 2019. Comparison PET-CT April 07, 2019. CT FINDINGS: Digital preliminary cmm inspector radiograph is unremarkable. There is no evidence of pleural or pericardial effusion. There is a cyst in the upper pole right kidney again noted measuring 2.1 cm in diameter. No hydronephrosis is seen on either side. There are clips in the gallbladder fossa post cholecystectomy. No pancreatic lesion is seen. Normal adrenal glands. The right periaortic soft tissue mass identified on March 17, 2019 and seen to be avid on PET scintigraphy is again seen. This may be slightly smaller. It measures 18 x 22 mm in AP x transverse dimension respectively, previously 21 x 24 mm. No new focus is appreciated. No pelvic mass or adenopathy is seen. Small and large bowel loops are unremarkable. No mesenteric mass or adenopathy is seen. No abdominal wall defect is observed. Prostate, seminal vesicles and urinary bladder are unremarkable. IMPRESSION: The periaortic retroperitoneal lesion noted previously to the right of the abdominal aorta is again seen perhaps slightly smaller. No new area of mass or adenopathy is seen. Electronically Signed by Sumit Galeana MD 10/15/2019 07:56 A
== END ==
LOC: M RAD 13:00
PROVIDERS: ATTEND Internal Medicine Medical Oncology
DX: C82.90 Follicular lymphoma, unspecified, unspecified site (principal)
CPT/HCPCS: 71250; 74176; Q9963

== ENCOUNTER 2019-12-09 18:26 | Inpatient (IN) | payer MEDICARE ==
[~2019-12-09] VITALS: Ht 172.7 cm; Wt 80.0 kg
[~2019-12-09 18:26] MED LIST changes: -GASTROGRAFIN SOLUTION 30ML (Q9963) As Ordered ONE; -ISOVUE-370 76% 100ML VIAL As Ordered ONE
[2019-12-09] MEDS ORDERED: METF500T13 PO (18:47)
[2019-12-09] MEDS ORDERED: COUM1TAB17 PO (18:47)
[2019-12-09] MEDS ORDERED: NS 1,000 ML IV ONE (19:30)
[2019-12-09] MEDS ORDERED: COMBIVENT RESPIMAT 100-20MCG INHALER 4GM INH ONE (19:30)
[2019-12-09] MEDS ORDERED: ACETAMINOPHEN TAB 650MG DOSE (2X325MG) PO ONE (19:30)
[2019-12-09] MEDS ORDERED: IBUPROFEN 800 MG TAB PO ONE (19:30)
[2019-12-09 20:14] LABS: HEMOGLOBIN 11.1 g/dl (13.5-17.5); MEAN CORPUSCULAR HEMOGLOBIN 31.9 pg (27.0-33.0); MEAN CORPUSCULAR HGB CONC 32.6 g/dl (32.0-36.5); MEAN CORPUSCULAR VOLUME 97.7 fl (80.0-96.0); PLATELET COUNT, AUTOMATED 129 10^3/uL (150-450); RED BLOOD COUNT 3.48 10^6/uL (4.30-6.10); VENOUS PARTIAL PRESSURE CO2 36.4 mmHg (38.0-50.0); VENOUS PH 7.407 UNITS (7.330-7.430); WHITE BLOOD COUNT 6.7 10^3/uL (4.0-10.0)
[2019-12-09 20:15] LABS: VENOUS BASE EXCESS -1.8 (-2.0-2.0); VENOUS HCO3 22.4 MEQ/L (23.0-27.0); VENOUS O2 SATURATION 65.2 % (60.0-80.0); VENOUS PARTIAL PRESSURE O2 34.4 mmHg (30.0-50.0); VENOUS TOTAL CO2 23.5 MEQ/L (24.0-28.0)
--- NOTE | 2019-12-09 20:15 | REPVR ---
PROCEDURE INFORMATION: Exam: XR Chest, 1 View Exam date and time: 12/09/2019 8:02 PM Age: 79 years old Clinical indication: Shortness of breath; Additional info: SOB TECHNIQUE: Imaging protocol: XR of the chest Views: 1 view. COMPARISON: CT Chest without contrast 10/14/2019 2:54 PM, chest x-ray 02/13/2019. FINDINGS: Lungs: There is new hazy opacity and consolidation within the left mid and lower lung compared to the previous chest x-ray and chest CT scan. The findings are consistent with pneumonia in the proper clinical setting. Followup imaging to confirm resolution of this abnormality is recommended as clinically warranted. The right lung is clear. The pulmonary vasculature is within normal limits. Pleural space: No pleural effusion or pneumothorax. Heart/Mediastinum: Changes of previous CABG, radiographically stable. No cardiomegaly. Bones/joints: No acute bone or joint abnormality. IMPRESSION: New hazy opacity within the left mid and lower lung zone consistent with pneumonia in the proper clinical setting. Followup imaging to confirm resolution of this abnormality is recommended as clinically warranted. Electronically signed by: Regan Daniels On 12/09/2019 20:15:49 PM
[2019-12-09 20:28] LABS: PARTIAL THROMBOPLASTIN TIME 38.3 SECONDS (25.0-38.4)
[2019-12-09] MEDS ORDERED: ONDANSETRON 4MG/2ML VIAL IV ONE (20:30)
[2019-12-09 20:31] LABS: INR 2.24; PROTHROMBIN TIME 25.3 SECONDS (11.8-14.0)
[2019-12-09 20:43] LABS: BILIRUBIN,DIRECT 0.6 MG/DL (0.0-0.2); BILIRUBIN,TOTAL 1.2 MG/DL (0.2-1.0); CALCIUM LEVEL 8.5 MG/DL (8.8-10.2); CREATININE FOR GFR 1.43 MG/DL (0.70-1.30); GLOMERULAR FILTRATION RATE 50.9 (>42); POTASSIUM SERUM 3.8 MEQ/L (3.5-5.1); TOTAL PROTEIN 6.5 GM/DL (6.4-8.2)
[2019-12-09 20:46] LABS: EOSINOPHILS 1 % (0-3); LYMPHOCYTES 9 % (16-44); MONOCYTES 4 % (0-5); NEUTROPHILS 83 % (28-66)
[2019-12-09 20:47] LABS: PLATELET ESTIMATE DECREASED (NORMAL)
[2019-12-09] MEDS: ROSUVASTATIN 10 MG TAB (CRESTOR) PO SCH (21:00)
[2019-12-09] MEDS ORDERED: DOXYCYCLINE HYCLATE 100 MG in D5W MINI-BAG PLUS 100 ML IV ONE (21:45)
[2019-12-09] MEDS ORDERED: cefTRIAXone SOD 1 GM in D5W MINI-BAG PLUS 50 ML IV ONE (21:45)
[2019-12-09] MEDS ORDERED: GLUCAGON INJ 1MG VIAL SC PRN (22:15)
[2019-12-09] MEDS ORDERED: GLUCOSE 4GM CHEW TABLET PO PRN (22:15)
[2019-12-09] MEDS ORDERED: DEXTROSE 50% 50 ML SYRINGE IV PRN (22:15)
--- NOTE | 2019-12-09 22:25 | HPEPDOC ---
[facility] Medical History & Physical Date of Admission Dec 09, 2019 Date of Service: Dec 09, 2019 History and Physical CHIEF COMPLAINT: SOB HISTORY OF PRESENT ILLNESS: Patient is 79 year old male with PMH NHL diagnosed in 2004, Afib on warfarin, IDDM, CAD s/p CABG, skin cancer, bladder cancer, skin cancer and eye cancer presents to the ER with complaints of worsening SOB for the past few days. He states that he had no other symptoms apart from SOB, chronic intermittent cough, and feeling generalized unwell until he developed a fever today and. He current states that he feels much better and completely asymptomatic at rest. Denies any current chest pain, SOB, fever or chills. CXR in ER shows L. sided mid and lower lobe consolidation suggestive of PNA. He was also found to be febrile with T 102.6, HR 109 but afebrile and LA 2.0. PAST MEDICAL HISTORY: Refer to [facility] PAST SURGICAL HISTORY: CABG Cholecystectomy SOCIAL HISTORY: Former smoker. Rare alcohol use. Denies drug use. FAMILY HISTORY: Mother- ovarian cancer and passed at age 44 ALLERGIES: Please see below. REVIEW OF SYSTEMS: 10 point ROS negative except as above HOME MEDICATIONS: Please see below. PHYSICAL EXAMINATION: VITAL SIGNS: Please see below. GENERAL: Mild fatigue, subjective warmth- has his gown off, head shaved with multiple erythematous spots HEENT: Normocephalic, atraumatic, moist mucous membranes NECK: Supple CARDIOVASCULAR EXAMINATION: Normal rate RESPIRATORY EXAMINATION: b/l rales from bases to mid lung, worse on the L. side, no wheezing ABDOMINAL EXAMINATION: Soft, nontender, nondistended EXTREMITIES: Range of motion intact SKIN: Multiple erythematous region on the head and face, surgical scars posterior portion of scalp. NEUROLOGICAL EXAMINATION: Alert and oriented 3, no focal deficits PSYCHIATRIC EXAMINATION: Calm and cooperative LABORATORY DATA: See below. IMAGING: CXR- IMPRESSION: New hazy opacity within the left mid and lower lung zone consistent with pneumonia in the proper clinical setting. Followup imaging to confirm resolution of this abnormality is recommended as clinically warranted. MICROBIOLOGY: Please see below. ASSESSMENT AND PLAN: 1. L. sided CAP - CXR w/ evidence of L. sided lower and mid lobe PNA along with SOB and febrile on admission. - Received doxycycline and rocephin in ER with now improvement in symptoms. Will continue regimen. - HD stable at this time. LA 2.0. 2. NHL - Undergoing treatment with oncology, 3rd course of treatment since diagnosis in 2004. 3. hx bladder cancer, eye cancer s/p treatment 4. skin cancer - previous surgery and is pending to get more on the scalp and face. 5. IDDM - Had been off of lantus for the past 3 months but just asked by his PCP to restart 10 units again. - ISS, consistent carbohydrate diet. 6. CAD s/p CABG - resume home meds. 7. Afib - resume home dose warfarin. DVT ppx: SCD and already on warfarin Code status: Full code Vital Signs Vital Signs Date Time Temp Pulse Resp B/P (MAP) Pulse Ox O2 Delivery O2 Flow Rate FiO2 12/09/19 18:38 102.6 109 20 126/62 (83) 96 Room Air Laboratory Data Labs 24H Laboratory Tests 2 12/09/19 19:45: Neutrophils (%) (Auto) , Nucleated Red Blood Cells % (auto) 0.0, Neutrophils 83H, Band Neutrophils 3, Lymphocytes (Manual) 9L, Monocytes (Manual) 4, Eosinophils (Manual) 1, Platelet Estimate DECREASED, Prothrombin Time 25.3H, Prothromb Time International Ratio 2.24, Activated Partial Thromboplast Time 38.3, Venous Blood pH 7.407, Venous Blood Partial Pressure CO2 36.4L, Venous Blood Partial Pressure O2 34.4, Venous Blood Total Carbon Dioxide 23.5L, Venous Blood HCO3 22.4L, Venous Blood Oxygen Saturation 65.2, Venous Blood Base Excess -1.8, Anion Gap 9, Glomerular Filtration Rate 50.9, Lactic Acid Level 2.0, Calcium Level 8.5L, Total Bilirubin 1.2H, Direct Bilirubin 0.6H, Aspartate Amino Transf (AST/SGOT) 24, Alanine Aminotransferase (ALT/SGPT) 27, Alkaline P hosphatase 76, JU-Zii-[id number]-Type Natriuretic Peptide 3835H, Total Protein 6.5, Albumin 3.0L, Albumin/Globulin Ratio 0.9, Lipase 83 CBC/BMP Laboratory Tests 12/09/19 19:45 Microbiology Microbiology 12/09/19 Blood Culture, Received Pending 12/09/19 Respiratory Virus Panel (PCR) (SUSAN) - Final, Complete 12/09/19 Blood Culture, Received Pending Home Medications Scheduled Ascorbic Acid (Ascorbic Acid) 500 Mg Tablet, 500 MG PO DAILY Cholecalciferol (Vitamin D3) (Vitamin D3) 1,000 Unit Tablet, 2,000 UNITS PO DAILY Fenofibrate Nanocrystallized (Fenofibrate) 48 Mg Tablet, 48 MG PO QHS Fluorouracil (Fluorouracil) 5% 40GM Cream..g., 1 DOSE TOP BID APPLIES TO LEFT CHEEK, UPPER LIP AND SCALP Insulin Glargine (Lantus) 100 Unit/Ml Inj, 10 UNITS SC QHS Ipratropium Moultrie (Ipratropium M[place]) 15 Ml Wasta, 2 SPRAY NA BID Lenalidomide (Revlimid) 20 Mg Capsule, 1 CAP PO DAILY TAKE 1 CAPSULE BY MOUTH DAILY ON DAYS 1-21 OF CHEMOTHERAPY CYCLE, THEN TAKE 7 DAYS OFF Metformin HCl (Metformin HCl) 500 Mg Tablet, 500 MG PO DAILY Metoprolol Succinate (Metoprolol Succinate) 200 Mg Tab.er.24h, 200 MG PO DAILY Multivitamins (Thera M Plus Tablet) 1 Each Tablet, 1 TAB PO DAILY Rosuvastatin Calcium (Rosuvastatin Calcium) 20 Mg Tablet, 20 MG PO QHS Warfarin Sodium (Warfarin Sodium) 5 Mg Tablet, 2.5 MG PO QHS Scheduled PRN Albuterol Sulf (Albuterol Sulfate) 2.5 Mg/3 Ml Vial.neb, 2.5 MG INH QID PRN for SHORTNESS OF BREATH Albuterol Sulfate (Proair Hfa) 8.5 Gm Hfa.aer.ad, 2 PUFF INH QID PRN for SHORTNESS OF BREATH Sodium Chloride (Sodium Chloride 3% Neb Jaclyn) 15 Ml Vial.neb, 3 ML INH TID PRN for SHORTNESS OF BREATH USES WITH ALBUTEROL Allergies Coded Allergies: coconut (Verified Allergy, Intermediate, facial swelling, 12/09/19) A-FIB/CHADSVASC A-FIB History Current/History of A-Fib/PAF?: No RUTHY SORIA MD Dec 09, 2019 22:24
[2019-12-09] MEDS ORDERED: PROAAER10 INH (22:35)
[2019-12-09] MEDS ORDERED: ALBU83IN INH (22:35)
[2019-12-09] MEDS ORDERED: METF-839 PO (22:35)
[2019-12-09] MEDS ORDERED: D31000TA2 PO (22:35)
[2019-12-09] MEDS ORDERED: WARF-23 PO (22:35)
[2019-12-09] MEDS ORDERED: SODI3NEB INH (22:35)
[2019-12-09] MEDS ORDERED: VITMTA PO (22:35)
[2019-12-09] MEDS ORDERED: METO200T28 PO (22:35)
[2019-12-09] MEDS ORDERED: IPRA6SP (22:35)
[2019-12-09] MEDS ORDERED: FENO48TA7 PO (22:35)
[2019-12-09] MEDS ORDERED: FLUO1CRE2 TOP (22:35)
[2019-12-09] MEDS ORDERED: ALBUTEROL SULFATE 2.5 MG/0.5 ML INH NEB SOLN INH PRN (22:45)
[2019-12-09] MEDS ORDERED: ALBUTEROL 90 MCG/ACT 8GM HFA INHALER INH PRN (22:45)
[2019-12-09] MEDS: HumaLOG INSULIN (NovoLOG) PER UNIT SC SCH (22:45)
[2019-12-09] MEDS: LEVEMIR (INSULIN DETEMIR) 1 UNITS/0.01ML SC SCH (23:58)
[2019-12-10] MEDS: WARFARIN SOD 2.5MG TAB PO SCH ×2 (02:00→22:23)
[2019-12-10] MEDS: FENOFIBRATE 48 MG TAB (TRICOR) PO SCH ×2 (02:01→23:31)
[2019-12-10 06:59] LABS: HEMATOCRIT 32.5 % (42.0-52.0); HEMOGLOBIN 10.6 g/dl (13.5-17.5); MEAN CORPUSCULAR HEMOGLOBIN 31.7 pg (27.0-33.0); MEAN CORPUSCULAR HGB CONC 32.6 g/dl (32.0-36.5); MEAN CORPUSCULAR VOLUME 97.3 fl (80.0-96.0); PLATELET COUNT, AUTOMATED 129 10^3/uL (150-450); RED BLOOD COUNT 3.34 10^6/uL (4.30-6.10); WHITE BLOOD COUNT 4.8 10^3/uL (4.0-10.0)
[2019-12-10 07:30] LABS: CALCIUM LEVEL 8.4 MG/DL (8.8-10.2); CREATININE FOR GFR 1.5 MG/DL (0.70-1.30); GLOMERULAR FILTRATION RATE 48.2 (>42); POTASSIUM SERUM 3.8 MEQ/L (3.5-5.1)
[2019-12-10 08:00] VITALS: BP 145/83
[2019-12-10] MEDS ORDERED: metFORMIN (GLUCOPHAGE) 500 MG TAB PO SCH (08:00)
--- NOTE | 2019-12-10 08:28 | IPNPDOC ---
Date Seen The patient was seen on 12/10/19. Progress Note SUBJECTIVE: Pt was seen at bedside this am. Complains of excessive sputum productive when coughing, rust colored. Denies fever, chills, n/v/d, abdominal pain. No acute events reported by nursing overnight. OBJECTIVE PHYSICAL EXAMINATION: VITAL SIGNS: Please see below GENERAL: Mild fatigue, subjective warmth- has his gown off, head shaved with multiple erythematous spots HEENT: Normocephalic, atraumatic, moist mucous membranes NECK: Supple, no JVD CARDIOVASCULAR EXAMINATION: Ns1, 2 no mgr RESPIRATORY EXAMINATION: b/l rales from bases to mid lung, worse on the L. side, no wheezing ABDOMINAL EXAMINATION: Soft, nontender, nondistended, normal bowel soudns EXTREMITIES: Range of motion intact throughout SKIN: Multiple erythematous region on the head and face, surgical scars p osterior portion of scalp. NEUROLOGICAL EXAMINATION: Alert and oriented 3, no focal deficits PSYCHIATRIC EXAMINATION: Calm and cooperative LABORATORY DATA, IMAGING STUDIES, MICROBIOLOGY: Please see below. ASSESSMENT AND PLAN: # L sided CAP # CAD s/p CABG # Non-hogkin lymphoma # Hx of bladder ca, eye ca s/p treatment # skin ca # IDDM # Hx of Afib # HLD - Continue rocephin and doxy for L side PNA - pending sputum and blood x2 cx - continue levemir and lispro with AC/HS + hypoglycemic protocol - Continue crestor and tricor - Continue Warfarin for afib - Will continue to monitor daily CBC and BMP and vitals - PT/OT eval and treat today DVT ppx: Warfarin and SCD's Code status: Full code DISPOSITION: pending blood cx and sputum cx VS, I&O, 24H, Fishbone Vital Signs/I&O Vital Signs Date Time Temp Pulse Resp B/P (MAP) Pulse Ox O2 Delivery O2 Flow Rate FiO2 12/10/19 07:58 98.2 88 20 110/67 (81) 92 Room Air I&O- Last 24 Hours up to 6 AM 12/10/19 06:00 Intake Total 1150 ml Balance 1150 ml Laboratory Data 24H LABS Laboratory Tests 2 12/09/19 19:45: Neutrophils (%) (Auto) , Nucleated Red Blood Cells % (auto) 0.0, Neutrophils 83H, Band Neutrophils 3, Lymphocytes (Manual) 9L, Monocytes (Manual) 4, Eosinophils (Manual) 1, Platelet Estimate DECREASED, Prothrombin Time 25.3H, Prothromb Time International Ratio 2.24, Activated Partial Thromboplast Time 38.3, Venous Blood pH 7.407, Venous Blood Partial Pressure CO2 36.4L, Venous Blood Partial Pressure O2 34.4, Venous Blood Total Carbon Dioxide 23.5L, Venous Blood HCO3 22.4L, Venous Blood Oxygen Saturation 65.2, Venous Blood Base Excess -1.8, Anion Gap 9, Glomerular Filtration Rate 50.9, Lactic Acid Level 2.0, Calcium Level 8.5L, Total Bilirubin 1.2H, Direct Bilirubin 0.6H, Aspartate Amino Transf (AST/SGOT) 24, Alanine Aminotransferase (ALT/SGPT) 27, Alkaline Phosphatase 76, VK-Qhw-P-Type Natriuretic Peptide 3835H, Total Protein 6.5, Albumin 3.0L, Albumin/Globulin Ratio 0.9, Lipase 83 12/10/19 06:35: Nucleated Red Blood Cells % (auto) 0.0, Anion Gap 6L, Glomerular Filtration Rate 48.2, Calcium Level 8.4L CBC/BMP Laboratory Tests 12/09/19 19:45 12/10/19 06:35 Microbiology Microbiology 12/09/19 Blood Culture, Received Pending 12/09/19 Respiratory Virus Panel (PCR) (SUSAN) - Final, Complete 12/09/19 Blood Culture, Received Pending GME ATTESTATION GME ATTESTATION My faculty preceptor for this patient encounter was physically present during the encounter and was fully available. All aspects of the patient interview, examination, medical decision making process, and medical care plan development were reviewed and approved by the faculty preceptor. The faculty preceptor is aware and concurs with the plan as stated in the body of this note and will attest to such by his/her cosignature. GME ATTESTATION GME ATTESTATION My faculty preceptor for this patient encounter was physically present during the encounter and was fully available. All aspects of the patient interview, examination, medical decision making process, and medical care plan development were reviewed and approved by the faculty preceptor. The faculty preceptor is aware and concurs with the plan as stated in the body of this note and will attest to such by his/her cosignature. GME ATTESTATION GME ATTESTATION My faculty preceptor for this patient encounter was physically present during the encounter and was fully available. All aspects of the patient interview, examination, medical decision making process, and medical care plan development were reviewed and approved by the faculty preceptor. The faculty preceptor is aware and concurs with the plan as stated in the body of this note and will attest to such by his/her cosignature. ATTENDING NOTE Patient independently seen and examined. Agree with resident's note. Estela Zhu DO Dec 10, 2019 08:28 NANNETTE MCKINNEY MD Jan 05, 2020 11:29
[2019-12-10] MEDS: HumaLOG INSULIN (NovoLOG) PER UNIT SC SCH ×4 (08:56→22:08)
[2019-12-10] MEDS: DOXYCYCLINE HYCLATE 100MG TABLET PO SCH ×2 (08:57→22:24)
[2019-12-10] MEDS: VITAMIN D 1,000 INTERNATIONAL UNITS TABLET PO SCH (08:57)
[2019-12-10] MEDS: MULTIVITAMINS/MINERALS THERAP 1 TAB PO SCH (08:57)
[2019-12-10] MEDS: METOPROLOL SUCC (TopROL XL) 100MG *XL* TAB PO SCH (08:57)
[2019-12-10] MEDS ORDERED: ENTER DRUG NAME HERE (PATIENT'S OWN MED) XX SCH (09:00)
[2019-12-10] MEDS ORDERED: ENTER DRUG NAME HERE (PATIENT'S OWN MED) PO SCH (09:00)
[2019-12-10] MEDS: ACETAMINOPHEN TAB 650MG DOSE (2X325MG) PO PRN ×2 (09:50→22:25)
[2019-12-10 14:00] VITALS: BP 129/78
[2019-12-10] MEDS: IPRATROPIUM 0.06% NASAL SPRAY 15 ML (ATROVENT) SCH ×2 (17:16→22:25)
[2019-12-10] MEDS ORDERED: cefTRIAXone SOD 1 GM in D5W MINI-BAG PLUS 50 ML IV SCH (21:00)
[2019-12-10 22:00] VITALS: BP 131/80
[2019-12-10] MEDS: BENZONATATE 100 MG CAP PO SCH (22:23)
[2019-12-10] MEDS: ROSUVASTATIN 10 MG TAB (CRESTOR) PO SCH (22:23)
[2019-12-10] MEDS: LEVEMIR (INSULIN DETEMIR) 1 UNITS/0.01ML SC SCH (22:24)
[2019-12-11 06:00] VITALS: BP 144/71
[2019-12-11 06:57] LABS: HEMATOCRIT 30.5 % (42.0-52.0); HEMOGLOBIN 10.1 g/dl (13.5-17.5); MEAN CORPUSCULAR HEMOGLOBIN 31.6 pg (27.0-33.0); MEAN CORPUSCULAR HGB CONC 33.1 g/dl (32.0-36.5); MEAN CORPUSCULAR VOLUME 95.3 fl (80.0-96.0); PLATELET COUNT, AUTOMATED 125 10^3/uL (150-450); WHITE BLOOD COUNT 3.8 10^3/uL (4.0-10.0)
[2019-12-11 07:07] LABS: INR 2.19; PROTHROMBIN TIME 24.8 SECONDS (11.8-14.0)
[2019-12-11 07:23] LABS: CALCIUM LEVEL 8.2 MG/DL (8.8-10.2); CREATININE FOR GFR 1.24 MG/DL (0.70-1.30); POTASSIUM SERUM 3.2 MEQ/L (3.5-5.1)
[2019-12-11] MEDS: HumaLOG INSULIN (NovoLOG) PER UNIT SC SCH (07:30)
[2019-12-11 07:33] LABS: ANISOCYTOSIS 1+; EOSINOPHILS 4 % (0-3); LYMPHOCYTES 11 % (16-44); MONOCYTES 15 % (0-5); NEUTROPHILS 70 % (28-66); PLATELET ESTIMATE DECREASED (NORMAL)
[2019-12-11] MEDS ORDERED: POTASSIUM CHLORIDE 10 MEQ SR TABLET PO ONE (08:45)
--- NOTE | 2019-12-11 08:54 | IPNPDOC ---
Date Seen The patient was seen on 12/11/19. Progress Note note created in error VS, I&O, 24H, Fishbone Vital Signs/I&O Vital Signs Date Time Temp Pulse Resp B/P (MAP) Pulse Ox O2 Delivery O2 Flow Rate FiO2 12/11/19 06:00 98.7 74 18 144/71 (95) 97 Room Air I&O- Last 24 Hours up to 6 AM 12/11/19 06:00 Intake Total 2123 ml Balance 2123 ml Laboratory Data 24H LABS Laboratory Tests 2 12/11/19 06:00: Neutrophils (%) (Auto) , Nucleated Red Blood Cells % (auto) 0.0, Neutrophils 70H, Lymphocytes (Manual) 11L, Monocytes (Manual) 15H, Eosinophils (Manual) 4H, Anisocytosis 1+, Platelet Estimate DECREASED, Prothrombin Time 24.8H, Prothromb Time International Ratio 2.19, Anion Gap 6L, Glomerular Filtration Rate 60.0, Calcium Level 8.2L CBC/BMP Laboratory Tests 12/11/19 06:00 Microbiology Microbiology 12/10/19 Gram Stain, Received Pending 12/10/19 Sputum Culture, Received Pending 12/09/19 Blood Culture - Preliminary, Resulted No growth after 24 hours . All specim... 12/09/19 Respiratory Virus Panel (PCR) (SUSAN) - Final, Complete 12/09/19 Blood Culture - Preliminary, Resulted No growth after 24 hours . All specim... GME ATTESTATION GME ATTESTATION My faculty preceptor for this patient encounter was physically present during the encounter and was fully available. All aspects of the patient interview, examination, medical decision making process, and medical care plan development were reviewed and approved by the faculty preceptor. The faculty preceptor is aware and concurs with the plan as stated in the body of this note and will attest to such by his/her cosignature. Estela Zhu DO Dec 11, 2019 08:53
[2019-12-11] MEDS: MULTIVITAMINS/MINERALS THERAP 1 TAB PO SCH (10:09)
[2019-12-11] MEDS: VITAMIN D 1,000 INTERNATIONAL UNITS TABLET PO SCH (10:09)
[2019-12-11] MEDS: DOXYCYCLINE HYCLATE 100MG TABLET PO SCH (10:09)
[2019-12-11] MEDS: IPRATROPIUM 0.06% NASAL SPRAY 15 ML (ATROVENT) SCH (10:10)
[2019-12-11] MEDS: BENZONATATE 100 MG CAP PO SCH (10:10)
[2019-12-11 10:12] VITALS: BP 140/73
[2019-12-11] MEDS: METOPROLOL SUCC (TopROL XL) 100MG *XL* TAB PO SCH (10:12)
[2019-12-11] MEDS ORDERED: CEFD1CAP8 PO (10:27)
[2019-12-11] MEDS ORDERED: DOXY-350 PO (10:27)
--- NOTE | 2019-12-11 10:35 | DS.PDOC ---
Discharge Summary General Date of Admission Dec 09, 2019 at 22:09 Date of Discharge 12/11/2019 Attending Physician: NANNETTE MCKINNEY MD Discharge Summary PROCEDURES PERFORMED DURING STAY: [None]. ADMITTING DIAGNOSES: 1. L sided Pneumonia DISCHARGE DIAGNOSES: 1. L sided Pneumonia COMPLICATIONS/CHIEF COMPLAINT: Pneumonia. HOSPITAL COURSE: Patient is 79 year old male with PMH NHL diagnosed in 2004, Afib on warfarin, IDDM, CAD s/p CABG, skin cancer, bladder cancer, skin cancer and eye cancer presents to the ER with complaints of worsening SOB for the past few days. He states that he had no other symptoms apart from SOB, chronic intermittent cough, and feeling generalized unwell until he developed a fever today and. He current states that he feels much better and completely asymptomatic at rest. Denies any current chest pain, SOB, fever or chills. CXR in ER shows L. sided mid and lower lobe consolidation suggestive of PNA. He was also found to be febrile with T 102.6, HR 109 but afebrile and LA 2.0. Pt continued on doxy and rocephin and continues to feel better. Blood cx no growth. Pt states that he feels better and denies SOB, abdominal pain, fever, chills, n/v/d. Pt was instructed to take cefdinir and doxy for 7 days and follow up with pcp within 7 days. He was instructed that if his condition worsens to report back to the nearest ER. DISCHARGE MEDICATIONS: Please see below. ALLERGIES: Please see below. PHYSICAL EXAMINATION ON DISCHARGE: VITAL SIGNS: Please see below GENERAL: Mild fatigue, subjective warmth- has his gown off, head shaved with multiple erythematous spots HEENT: Normocephalic, atraumatic, moist mucous membranes NECK: Supple, no JVD CARDIOVASCULAR EXAMINATION: Ns1, 2 no mgr RESPIRATORY EXAMINATION: b/l rales from bases to mid lung, worse on the L. side, no wheezing ABDOMINAL EXAMINATION: Soft, nontender, nondistended, normal bowel sounds EXTREMITIES: Range of motion intact throughout SKIN: Multiple erythematous region on the head and face, surgical scars posterior portion of scalp. NEUROLOGICAL EXAMINATION: Alert and oriented 3, no focal deficits PSYCHIATRIC EXAMINATION: Calm and cooperative LABORATORY DATA: Please see below. IMAGING: CXR MPRESSION: New hazy opacity within the left mid and lower lung zone consistent with pneumonia in the proper clinical setting. Followup imaging to confirm resolution of this abnormality is recommended as clinically warranted. PROGNOSIS: stable ACTIVITY: As tolerated DIET: normal diet DISPOSITION: stable on discharge, f/u with PCP within 1 week DISCHARGE CONDITION: [Stable]. Vital Signs/I&Os Vital Signs Date Time Temp Pulse Resp B/P (MAP) Pulse Ox O2 Delivery O2 Flow Rate FiO2 12/11/19 10:12 108 140/73 12/11/19 06:00 98.7 18 97 Room Air I&O- Last 24 Hours up to 6 AM 12/11/19 06:00 Intake Total 2123 ml Balance 2123 ml Laboratory Data Labs 24H Laboratory Tests 2 12/11/19 06:00: Neutrophils (%) (Auto) , Nucleated Red Blood Cells % (auto) 0.0, Neutrophils 70H, Lymphocytes (Manual) 11L, Monocytes (Manual) 15H, Eosinophils (Manual) 4H, Anisocytosis 1+, Platelet Estimate DECREASED, Prothrombin Time 24.8H, Prothromb Time International Ratio 2.19, Anion Gap 6L, Glomerular Filtration Rate 60.0, Calcium Level 8.2L CBC/BMP Laboratory Tests 12/11/19 06:00 Microbiology Microbiology 12/10/19 Gram Stain - Final, Resulted 12/10/19 Sputum Culture, Resulted Pending 12/09/19 Blood Culture - Preliminary, Resulted No growth after 24 hours . All specim... 12/09/19 Respiratory Virus Panel (PCR) (SUSAN) - Final, Complete 12/09/19 Blood Culture - Preliminary, Resulted No growth after 24 hours . All specim... Discharge Medications Scheduled Ascorbic Acid (Ascorbic Acid) 500 Mg Tablet, 500 MG PO DAILY, (Reported) Cefdinir (Cefdinir) 300 Mg Capsule, 300 MG PO BID Doxycycline Monohydrate (Doxycycline) 100 Mg Capsule, 100 MG PO BID Fenofibrate Nanocrystallized (Fenofibrate) 48 Mg Tablet, 48 MG PO QHS, (Reported) Fluorouracil (Fluorouracil) 5% 40GM Cream..g., 1 DOSE TOP BID, (Reported) APPLIES TO LEFT CHEEK, UPPER LIP AND SCALP Insulin Glargine (Lantus) 100 Unit/Ml Inj, 10 UNITS SC QHS, (Reported) Lenalidomide (Revlimid) 20 Mg Capsule, 1 CAP PO DAILY TAKE 1 CAPSULE BY MOUTH DAILY ON DAYS 1-21 OF CHEMOTHERAPY CYCLE, THEN TAKE 7 DAYS OFF Metformin HCl (Metformin HCl) 500 Mg Tablet, 500 MG PO DAILY, (Reported) Metoprolol Succinate (Metoprolol Succinate) 200 Mg Tab.er.24h, 100 MG PO DAILY, (Reported) Multivitamins (Thera M Plus Tablet) 1 Each Tablet, 1 TAB PO DAILY, (Reported) Rosuvastatin Calcium (Rosuvastatin Calcium) 20 Mg Tablet, 20 MG PO QHS, (Reported) Warfarin Sodium (Warfarin Sodium) 5 Mg Tablet, 2.5 MG PO QHS, (Reported) Scheduled PRN Albuterol Sulfate (Proair Hfa) 8.5 Gm Hfa.aer.ad, 2 PUFF INH QID PRN for SHORTNESS OF BREATH, (Reported) Sodium Chloride (Sodium Chloride 3% Neb Jaclyn) 15 Ml Vial.neb, 3 ML INH TID PRN for SHORTNESS OF BREATH, (Reported) USES WITH ALBUTEROL Allergies Coded Allergies: coconut (Verified Allergy, Intermediate, facial swelling, 12/09/19) GME ATTESTATION GME ATTESTATION My faculty preceptor for this patient encounter was physically present during the encounter and was fully available. All aspects of the patient interview, examination, medical decision making process, and medical care plan development were reviewed and approved by the faculty preceptor. The faculty preceptor is aware and concurs with the plan as stated in the body of this note and will attest to such by his/her cosignature. ATTENDING NOTE Patient independently seen and examined. Agree with resident's note. Estela Zhu DO Dec 11, 2019 10:35 NANNETTE MCKINNEY MD Jan 05, 2020 11:30
--- NOTE | 2020-01-05 15:29 | ECGEPIP ---
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
[2020-01-06] MEDS ORDERED: REVL20CA PO (12:14)
== END 2019-12-11 12:20 | disposition home or self-care (01) | DRG 195 ==
LOC: M ED 18:26 → EDBD 18:26 → M ED INP 22:09 → M MSPAV 12-10 08:07
PROVIDERS: ADMIT Student in an Organized Health Care Education/Training Program; ATTEND Internal Medicine
DX: J18.9 Pneumonia, unspecified organism (principal); I48.91 Unspecified atrial fibrillation; E11.9 Type 2 diabetes mellitus without complications; I25.10 Atherosclerotic heart disease of native coronary artery without angina pectoris; Z95.1 Presence of aortocoronary bypass graft; Z85.828 Personal history of other malignant neoplasm of skin; Z85.51 Personal history of malignant neoplasm of bladder; E78.5 Hyperlipidemia, unspecified; Z79.01 Long term (current) use of anticoagulants; Z79.899 Other long term (current) drug therapy; Z79.4 Long term (current) use of insulin; Z85.79 Personal history of other malignant neoplasms of lymphoid, hematopoietic and related tissues; Z91.018 Allergy to other foods

== ENCOUNTER → 2020-01-25 | Outpatient (CLI) | payer MEDICARE ==
[~2020-01-25] MED LIST changes: +ALBU83IN INH; +COUM1TAB17 PO; +D31000TA2 PO; +DOXY-350 PO; +FLUO1CRE2 TOP; +IPRA6SP; +METF500T13 PO; +PROAAER10 INH; +SODI3NEB INH; +VITMTA PO
--- NOTE | 2020-02-10 12:31 | REP ---
PET CT HISTORY: Restaging lymphoma. COMPARISON: PET CT studies from 04/07/2019 and 09/15/2009. TECHNIQUE: 50 minutes following the intravenous injection of a 7.65 mCi dose of F18 fluorodeoxyglucose (FDG), three-dimensional PET CT imaging is acquired from the skull base to the proximal thighs. PET CT FINDINGS: Head and neck soft tissues are unremarkable. There is evidence of fairly advanced chronic obstructive pulmonary disease (COPD) with a peripheral pattern of subpleural fibrosis bilaterally in the lung sultana. This shows mildly increased FDG uptake ranging up to maximum SUV value of 3.32. Similar findings were observed on prior PET CT study of 04/07/2019, and this is essentially unchanged. The previously noted hypermetabolic right periaortic lymphadenopathy is decreased in size and no longer hypermetabolic. Maximum standard uptake value today 1.95 where previously maximum standard uptake value was 16.89. No new periaortic adenopathy is seen. 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 Similarly, the previously noted left T10 and right iliac bone hypermetabolic lesions have resolved as well. There is no abnormal hypermetabolic skeletal uptake today. No other abnormal hypermetabolic uptake is seen in the abdomen or pelvis. The scan is otherwise unremarkable. IMPRESSION: Significant improvement from the 04/07/2019 study. Decreased size of the retroperitoneal loida focus in the right periaortic region. This is no longer hypermetabolic. The previously noted bony lesions are resolved scintigraphically as well. no new hypermetabolic focus is seen. MTDD
== END ==
LOC: M PLARAD 07:37
PROVIDERS: ATTEND Internal Medicine Medical Oncology
DX: C85.94 Non-Hodgkin lymphoma, unspecified, lymph nodes of axilla and upper limb (principal)
CPT/HCPCS: 78815; A9552

== ENCOUNTER → 2020-06-01 | Outpatient (CLI) | payer MEDICARE ==
--- NOTE | 2020-06-01 09:20 | REP ---
INDICATION: LYMPHOMA NON HODGKINS FOLLOW UP COMPARISON: 10/14/2019 TECHNIQUE: Axial noncontrast images from the thoracic inlet to the upper abdomen with coronal and sagittal reformations. This CT examination was performed using the following dose reduction techniques: Automated exposure control, adjustment of mA and/or kv according to the patient's size, and use of iterative reconstruction technique. FINDINGS: Lung sultana again demonstrate advanced fibrosis and bronchiectasis. No acute consolidation, obvious nodule or mass lesion. No pleural effusion. No pneumothorax. No obvious significant axillary, hilar, or mediastinal adenopathy. Stable cardiomegaly with atherosclerotic changes to the coronary arteries again noted. No pericardial effusion. Atherosclerotic changes to the thoracic aorta are identified without aneurysm. Surrounding musculoskeletal structures demonstrate age-related degenerative changes without acute osseous abnormality. Prior sternotomy. Thyroid gland is grossly normal by noncontrast CT. IMPRESSION: Advanced fibrosis and bronchiectasis. No acute mediastinal or pleuroparenchymal process appreciated. No adenopathy. <Electronically signed by Patricio Ham > 06/01/20 0901
--- NOTE | 2020-06-01 09:31 | REP ---
INDICATION: LYMPHOMA NON HODGKINS FOLLOW UP COMPARISON: 10/14/2019 TECHNIQUE: Axial noncontrast images from the lung bases to the pubic symphysis with coronal and sagittal reformations. This CT examination was performed using the following dose reduction techniques: Automated exposure control, adjustment of mA and/or kv according to the patient's size, and use of iterative reconstruction technique. FINDINGS: Stranding and small lymph nodes in the central mesentery remain unchanged. Small amount of soft tissue presumably representing adenopathy in a periaortic distribution is again noted and essentially unchanged. 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 No further significant conglomerate adenopathy is appreciated. Liver, spleen, pancreas, bilateral adrenal glands and kidneys are within normal limits/stable. 2 cm right renal upper pole lesion is unchanged and likely represents complex cyst although mass cannot be excluded based on current noncontrast examination. Evidence for prior cholecystectomy. The enteric system is without obstruction or acute inflammatory process. Scattered colonic and sigmoid diverticula noted without acute diverticulitis. Pelvis demonstrates normal bladder and age-appropriate prostate/seminal vesicles. No ascites. No free air. Musculoskeletal structures demonstrate degenerative changes without new acute osseous abnormality. IMPRESSION: 1. Stranding and small lymph nodes in the central mesentery along with small amount of periaortic soft tissue/lymph nodes remain unchanged. No new conglomerate adenopathy or mass lesion is appreciated. 2. 2 cm right upper pole renal lesion likely representing complex cyst is unchanged. Consider ultrasound follow-up evaluation to exclude the possibility of mass. 3. Nonacute findings as described above. <Electronically signed by Patricio Ham > 06/01/20 [id number]
== END ==
LOC: M RAD 07:32
PROVIDERS: ATTEND Internal Medicine Medical Oncology
DX: C85.90 Non-Hodgkin lymphoma, unspecified, unspecified site (principal)

== ENCOUNTER → 2020-09-28 | Outpatient (REF) | payer MEDICARE ==
[~2020-09-28] MED LIST changes: +COVI100V IM
[2020-09-28 14:08] LABS: APPEARANCE, URINE HAZY (CLEAR); BACTERIA, URINE AUTO NEGATIVE (NEGATIVE); BILIRUBIN, URINE AUTO NEGATIVE (NEGATIVE); BLOOD, URINE BLOOD NEGATIVE (NEGATIVE); COLOR, URINE AMBER (YELLOW); GLUCOSE, URINE (UA) AUTO 1+ mg/dL (NEGATIVE); KETONE, URINE AUTO NEGATIVE (NEGATIVE); LEUKOCYTE ESTERASE, URINE AUTO NEGATIVE (NEGATIVE); MUCUS, URINE SMALL (NEGATIVE); NITRITE, URINE AUTO NEGATIVE (NEGATIVE); PROTEIN, URINE AUTO 1+ mg/dL (NEGATIVE); RBC, URINE AUTO 0 /HPF (0-3); SPECIFIC GRAVITY URINE AUTO 1.017 (1.002-1.035); SQUAMOUS EPITHELIAL CELL UR AU 0 /HPF (0-6); UROBILINOGEN, URINE AUTO 0.2 mg/dL (0.0-2.0); WBC, URINE AUTO 1 /HPF (0-3)
== END ==
LOC: M SMT 12:51
PROVIDERS: ATTEND Urology
DX: Z85.51 Personal history of malignant neoplasm of bladder (principal)
CPT/HCPCS: 81001; 88108; G0463

== ENCOUNTER → 2020-10-04 | Outpatient (CLI) | payer MEDICARE | LOC: M RAD 14:00 | PROVIDERS: ATTEND Urology | DX: N28.1 Cyst of kidney, acquired (principal) ==

== ENCOUNTER → 2020-10-07 | Outpatient (CLI) | payer MEDICARE ==
--- NOTE | 2020-10-07 16:39 | REP ---
INDICATION: KIDNEY CYST. COMPARISON: CT 06/01/2020. TECHNIQUE: Real-time sonographic evaluation of the kidneys is performed. FINDINGS: Renal cortical echogenicity pattern is normal bilaterally and contours are smooth. There is no hydronephrosis bilaterally. There is a cyst in the upper pole the right kidney 2.6 x 2.0 x 2.1 cm. The right kidney measures 10.7 x 4.9 x 5.4 cm. Left renal dimensions are 12.4 x 5.0 x 5.9 cm. The urinary bladder is unremarkable. IMPRESSION: Right renal cyst maximum diameter 2.6 cm. <Electronically signed by Jeff Mora > 10/07/20 [id number]
== END ==
LOC: M RAD 15:39
PROVIDERS: ATTEND Urology
DX: N28.1 Cyst of kidney, acquired (principal)

== ENCOUNTER → 2020-10-11 | Outpatient (REF) | payer MEDICARE | LOC: M LAB REF 10:43 | PROVIDERS: ATTEND Dermatology | DX: C44.42 Squamous cell carcinoma of skin of scalp and neck (principal) | CPT/HCPCS: 14021; 15220; 17000; 88305; 88331; G0463 ==

== ENCOUNTER → 2021-01-24 | Outpatient (REF) | payer MEDICARE | LOC: M LAB REF 13:07 | PROVIDERS: ATTEND Internal Medicine Nephrology | DX: E83.42 Hypomagnesemia (principal) ==

== ENCOUNTER → 2021-02-27 | Outpatient (REF) | payer MEDICARE ==
[~2021-02-27] MED LIST changes: -FENO48TA7 PO; +FENO48TA8 PO
== END ==
LOC: M LAB REF 16:51
PROVIDERS: ATTEND Internal Medicine Pulmonary Disease
DX: J47.9 Bronchiectasis, uncomplicated (principal)

== ENCOUNTER → 2021-03-13 | Outpatient (REF) | payer MEDICARE | LOC: M LAB REF 17:06 | PROVIDERS: ATTEND Internal Medicine Pulmonary Disease | DX: J47.9 Bronchiectasis, uncomplicated (principal) ==

== ENCOUNTER → 2021-03-28 | Outpatient (CLI) | payer MEDICARE ==
--- NOTE | 2021-03-28 14:09 | REPVR ---
PROCEDURE INFORMATION: Exam: CT Chest Without Contrast; Diagnostic Exam date and time: 03/28/2021 11:17 AM Age: 80 years old Clinical indication: Condition or disease; Other: Idiopathic pulmonary fibrosis; Primary cancer: Nhl TECHNIQUE: Imaging protocol: Diagnostic computed tomography of the chest without contrast. 3D rendering (Not supervised by radiologist): MIP and/or 3D reconstructed images were created by the technologist. Radiation optimization: All CT scans at this facility use at least one of these dose optimization techniques: automated exposure control; mA and/or kV adjustment per patient size (includes targeted exams where dose is matched to clinical indication); or iterative reconstruction. COMPARISON: CT Chest without contrast 06/01/2020 7:40 AM FINDINGS: Lungs: Stable bronchiectasis and interstitial lung disease. Pleural spaces: Unremarkable. No pneumothorax. No pleural effusion. Heart: See "Aorta" finding. Aorta: Stable vascular structures including calcifications with ectasia of the aorta 39 mm. Extensive coronary artery calcifications. Lymph nodes: Unremarkable. No enlarged lymph nodes. Diaphragm: Stable elevated right hemidiaphragm. Gallbladder and bile ducts: Stable cholecystectomy clips. Kidneys and ureters: Stable right renal hypodensity. Bones/joints: Stable postoperative sternum. Soft tissues: Unremarkable. IMPRESSION: No change. Electronically signed by: Reji Amezquita On 03/28/2021 14:08:42 PM
== END ==
LOC: M RAD 10:53
PROVIDERS: ATTEND Internal Medicine Pulmonary Disease
DX: J84.112 Idiopathic pulmonary fibrosis (principal)